=== PATIENT | male | born 1990 | race Caucasian/White ===

== ENCOUNTER 2016-10-11 13:48 | Emergency (ER) | payer OTHER ==
[~2016-10-11] VITALS: Ht 182.9 cm; Wt 61.5 kg
[~2016-10-11 13:48] MED LIST: LANTUSP SQ; NOVOLOGP2 SQ
[2016-10-11] MEDS ORDERED: SODIUM CHLOR 0.9% 1000 ML INJ 1,000 ML IV ONE ×2 (13:53→14:23)
[2016-10-11 13:54] VITALS: BP 128/99; PULSE 97; RESP 20; TEMP 98.4; O2SAT 100
[2016-10-11] MEDS ORDERED: PROCHLORPERAZINE INJ 10 MG/2 ML VIAL IVS ONE (14:00)
[2016-10-11] MEDS ORDERED: SODIUM CHLORIDE 0.9% FLUSH 5 ML FLUSH IVF PRN (14:00)
[2016-10-11] MEDS ORDERED: diphenhydrAMINE HCL 50 MG/ML VIAL IV PUSH ONE (14:00)
[2016-10-11 14:09] LABS: BLOOD GAS VENOUS BASE EXCESS 3.3 mmol/L (-2-2); BLOOD GAS VENOUS HCO3 27 mmol/L (22-26); BLOOD GAS VENOUS O2 CONTENT 12.7 Vol % (9.0-17.0); BLOOD GAS VENOUS O2 HGB SAT 66 % (70-76); BLOOD GAS VENOUS PCO2 36 mmHg (44-48); BLOOD GAS VENOUS PO2 35 mmHg (35-40); BLOOD GAS VENOUS pH 7.48 (7.360-7.400); CRITICAL VALUE NO; DRAW SITE IV; FIO2 21 %; OXYGEN DEVICE ROOM AIR; STAT YES; TEMP CORR TO 98.6
[2016-10-11 14:19] LABS: AUTOMATED NEUTROPHIL # 8.1 TH/MM3 (1.8-7.7); BASOPHIL # 0.3 TH/MM3 (0-0.2); BASOPHIL % 2.3 % (0.0-2.0); CHLORIDE 91 MEQ/L (98-107); EOSINOPHIL # 0.1 TH/MM3 (0-0.4); EOSINOPHIL % 0.8 % (0.0-4.0); HEMATOCRIT 43.8 % (39.0-51.0); LYMPH % 18.2 % (9.0-44.0); MEAN CELL VOLUME 92.6 FL (80.0-100.0); MEAN CORPUSCULAR HEMOGLOBIN 30.3 PG (27.0-34.0); MEAN CORPUSCULAR HGB CONC 32.7 % (32.0-36.0); MONO % 6.9 % (0.0-8.0); NEUT % 71.8 % (16.0-70.0); PLATELET COUNT 290 TH/MM3 (150-450); POTASSIUM 3.8 MEQ/L (3.5-5.1); RED BLOOD COUNT 4.74 MIL/MM3 (4.50-5.90); SODIUM (NA) 130 MEQ/L (136-145); WHITE BLOOD COUNT 11.3 TH/MM3 (4.0-11.0)
[2016-10-11 14:22] LABS: ANION GAP 12 MEQ/L (5-15); BICARBONATE 27.5 MEQ/L (21.0-32.0); BLOOD UREA NITROGEN 19 MG/DL (7-18)
[2016-10-11 14:23] LABS: HEMO FLAGS DIFF FINAL
[2016-10-11 14:25] LABS: ALT (GPT) 16 U/L (12-78); AST (GOT) 14 U/L (15-37); GLOMERULAR FILTRATION RATE 67 ML/MIN (>89)
--- NOTE | 2016-10-11 14:26 | PD ---
HPI . Persistent vomiting Chief Complaint: Diabetic Time Seen by Provider: 13:53 Travel History International Travel<30 days: No Contact w/Intl Traveler<30days: No History of Present Illness HPI This is a type I diabetic who presents with persistent vomiting and diarrhea for the last 4 days. His sugar in triage was too high to register. The patient reports that he is diabetic because of pancreatitis as a teenager. He has subsequently undergone cholecystectomy, pancreatectomy, splenectomy. He states that his pancreas was "eating up his insides." In addition, the patient is reporting chronic low back pain. PFSH Past Medical History Asthma: Yes ( A CHILD) Autoimmune Disease: No Anxiety: No Depression: No Cardiovascular Problems: No Diabetes: Yes Diminished Hearing: No Genitourinary: No Musculoskeletal: Yes Neurologic: No Psychiatric: No Respiratory: No Pancreatitis: Yes Past Surgical History Abdominal Surgery: Yes (3 YRS AGO: CHOLY, SPLENECTOMY, 70% PANCREAS REMOVED AT [facility]) Cholecystectomy: Yes Social History Alcohol Use: Yes (1X MONTHLY OR BIMONTHLY) Tobacco Use: No Substance Use: No Allergies-Medications (Allergen,Severity, Reaction): Coded Allergies: Keflex (Verified Allergy, Intermediate, HIVES, 10/11/16) Maalox (Verified Allergy, Intermediate, HIVES, 10/11/16) Reported Meds & Prescriptions Reported Meds & Active Scripts Active Reported [Triceba] 38 Units SQ DAILY Novolog Inj (Insulin Aspart) 1,000 Unit/10 Ml Vial 0 SQ DIRECTED Sliding Scale as directed. Review of Systems Except as stated in HPI: all other systems reviewed are Neg General / Constitutional: No: Fever, Chills Gastrointestinal: Positive: Nausea, Vomiting, Diarrhea, Abdominal Pain Musculoskeletal: Positive: Pain (back) Physical Exam Narrative GENERAL: This is a chronically ill-appearing young man who is very pale and thin. SKIN: Warm and dry. HEAD: Atraumatic. Normocephalic. EYES: Pupils equal and round. ENT: No nasal bleeding or discharge. Mucous membranes are pink but dry. Breath smells of ketones. NECK: Trachea midline. Neck supple. CARDIOVASCULAR: Regular rate and rhythm. RESPIRATORY: No accessory muscle use. Lungs are clear with full air movement throughout. GASTROINTESTINAL: Abdomen soft, non-tender, nondistended. MUSCULOSKELETAL: No obvious deformities. No edema. NEUROLOGICAL: Awake and alert. No obvious cranial nerve deficits. Motor grossly within normal limits. Normal speech. PSYCHIATRIC: Appropriate mood and affect; insight and judgment normal. Data Data Last Documented VS Vital Signs Date Time Temp Pulse Resp B/P Pulse Ox O2 Delivery O2 Flow Rate FiO2 10/11/16 13:54 98.4 97 20 128/99 100 Orders Electrocardiogram (10/11/16 13:53) Complete Blood Count With Diff (10/11/16 13:53) Comprehensive Metabolic Panel (10/11/16 13:53) Beta Hydroxybutyrate (Acetone) (10/11/16 13:53) Lactic Acid (10/11/16 13:53) Urinalysis - C+S If Indicated (10/11/16 13:53) Blood Gas Venous (Vbg) (10/11/16 13:53) Blood Glucose (10/11/16 13:53) Blood Glucose (10/11/16 14:23) Blood Glucose (10/11/16 13:53) Blood Glucose (10/11/16 14:53) Ecg Monitoring (10/11/16 13:53) Iv Access Insert/Monitor (10/11/16 13:53) Oximetry (10/11/16 13:53) NPO (10/11/16 13:53) Sodium Chlor 0.9% 1000 Ml Inj (Ns 1000 M (10/11/16 13:53) Sodium Chlor 0.9% 1000 Ml Inj (Ns 1000 M (10/11/16 14:23) Sodium Chloride 0.9% Flush (Ns Flush) (10/11/16 14:00) Prochlorperazine Inj (Compazine Inj) (10/11/16 14:00) Diphenhydramine Inj (Benadryl Inj) (10/11/16 14:00) Diet Npo (10/11/16 Dinner) Sodium Chlor 0.9% 1000 Ml Inj (Ns 1000 M (10/11/16 14:41) Dext 5%-Nacl 0.9% 1000 Ml Inj (D5w-Ns 10 (10/11/16 14:41) Insulin Regular (Iv Infusion) (Novolin R (10/11/16 14:45) Potassium Chlor 20 Meq Premix (Kcl 20 Me (10/11/16 14:45) Potassium Chlor 20 Meq Premix (Kcl 20 Me (10/11/16 14:45) Potassium Chlor 20 Meq Premix (Kcl 20 Me (10/11/16 14:45) Potassium Chlor 20 Meq Premix (Kcl 20 Me (10/11/16 14:45) Sodium Bicarbonate 8.4% Inj (Sodium Bica (10/11/16 14:45) Sodium Bicarbonate 8.4% Inj (Sodium Bica (10/11/16 14:45) Sodium Phosphate Inj (Sodium Phosphate I (10/11/16 14:45) Basic Metabolic Panel (Bmp) (10/11/16 19:41) Basic Metabolic Panel (Bmp) (10/12/16 01:41) Basic Metabolic Panel (Bmp) (10/12/16 07:41) Basic Metabolic Panel (Bmp) (10/12/16 13:41) Magnesium (Mg) (10/11/16 19:41) Magnesium (Mg) (10/12/16 01:41) Magnesium (Mg) (10/12/16 07:41) Magnesium (Mg) (10/12/16 13:41) Phosphorus (Po4) (10/11/16 19:41) Phosphorus (Po4) (10/12/16 01:41) Phosphorus (Po4) (10/12/16 07:41) Phosphorus (Po4) (10/12/16 13:41) Beta Hydroxybutyrate (Acetone) (10/12/16 01:41) Beta Hydroxybutyrate (Acetone) (10/12/16 13:41) Labs Laboratory Tests Test 10/11/16 10/11/16 14:01 14:04 White Blood Count 11.3 TH/MM3 Red Blood Count 4.74 MIL/MM3 Hemoglobin 14.3 GM/DL Hematocrit 43.8 % Mean Corpuscular Volume 92.6 FL Mean Corpuscular Hemoglobin 30.3 PG Mean Corpuscular Hemoglobin 32.7 % Concent Red Cell Distribution Width 13.0 % Platelet Count 290 TH/MM3 Mean Platelet Volume 10.6 FL Neutrophils (%) (Auto) 71.8 % Lymphocytes (%) (Auto) 18.2 % Monocytes (%) (Auto) 6.9 % Eosinophils (%) (Auto) 0.8 % Basophils (%) (Auto) 2.3 % Neutrophils # (Auto) 8.1 TH/MM3 Lymphocytes # (Auto) 2.0 TH/MM3 Monocytes # (Auto) 0.8 TH/MM3 Eosinophils # (Auto) 0.1 TH/MM3 Basophils # (Auto) 0.3 TH/MM3 CBC Comment DIFF FINAL Differential Comment Sodium Level 130 MEQ/L Potassium Level 3.8 MEQ/L Chloride Level 91 MEQ/L Carbon Dioxide Level 27.5 MEQ/L Anion Gap 12 MEQ/L Blood Urea Nitrogen 19 MG/DL Creatinine 1.30 MG/DL Estimat Glomerular Filtration 67 ML/MIN Rate Random Glucose 694 MG/DL Lactic Acid Level 4.1 mmol/L Calcium Level 9.6 MG/DL Total Bilirubin 0.5 MG/DL Aspartate Amino Transf 14 U/L (AST/SGOT) Alanine Aminotransferase 16 U/L (ALT/SGPT) Alkaline Phosphatase 121 U/L Total Protein 8.3 GM/DL Albumin 4.0 GM/DL B-Hydroxybutyrate 0.63 MMOL/L Blood Gas Puncture Site IV Blood Gas Patient Temperature 98.6 Venous Blood pH 7.48 Venous Blood Partial Pressure 36 mmHg CO2 Venous Blood Partial Pressure 35 mmHg O2 Venous Blood HCO3 27 mmol/L Venous Blood Oxygen Saturation 66 % Venous Blood Oxygen Content 12.7 Vol % Venous Blood Base Excess 3.3 mmol/L Oxygen Delivery Device ROOM AIR Blood Gas Inspired Oxygen 21 % MDM Medical Decision Making Medical Screen Exam Complete: Yes Emergency Medical Condition: Yes Differential Diagnosis Differential diagnosis of hyperglycemia includes but is not limited to dietary indiscretion, medication noncompliance, infection, WA, DKA. Narrative Course This is a very thin, pale, chronically ill-appearing young man who presents history of nausea, vomiting and diarrhea. He smells of ketones. His glucose is too high to register by fingerstick. CBC & BMP Diagram 10/11/16 14:01 Lactic acid is 4.1. PH is 7.48 with a bicarbonate of 27. Serum ketones are positive at 0.63. Arrangements were made for this patient to be admitted to the hospital. However , he chooses to sign out AMA. The patient is totally competent. He has been told that he is welcome to return if he needs us. Diagnosis Primary Impression: Hyperglycemia due to type 1 diabetes mellitus Additional Impression: Diabetes mellitus with lactic acidosis without coma Admitting Information Admitting Physician Requests: Admit Disposition: 07 AGAINST MEDICAL ADVICE Condition: Jenifer Hernandez MD Oct 11, 2016 14:26
[2016-10-11 14:27] LABS: TOTAL BILIRUBIN ADULT 0.5 MG/DL (0.2-1.0)
[2016-10-11 14:29] LABS: ALKALINE PHOSPHATASE 121 U/L (45-117)
[2016-10-11 14:40] VITALS: BP 134/79; PULSE 99; RESP 16; O2SAT 98
[2016-10-11] MEDS ORDERED: DEXT 5%-NACL 0.9% 1000 ML INJ 1,000 ML IV SCH (14:41)
[2016-10-11] MEDS ORDERED: SODIUM CHLOR 0.9% 1000 ML INJ 1,000 ML IV SCH (14:41)
[2016-10-11] MEDS ORDERED: INSULIN REGULAR (IV INFUSION) 100 UNITS in SODIUM CHLORIDE 0.9% INJ 99 ML IV SCH (14:45)
[2016-10-11] MEDS ORDERED: SODIUM PHOSPHATE INJ 15 MMOL in SODIUM CHLORIDE 0.9% INJ 100 ML IV PRN (14:45)
[2016-10-11] MEDS ORDERED: SODIUM BICARBONATE 8.4% SOLN 50 MEQ/50 ML VIAL IV PRN ×2 (14:45)
[2016-10-11] MEDS ORDERED: POTASSIUM CHLOR 20 MEQ PREMIX 100 ML IV PRN ×4 (14:45)
[2016-10-11 14:54] LABS: BETA-HYDROXYBUTYRATE 0.63 MMOL/L (0.00-0.39)
[2016-10-11] MEDS ORDERED: NOVOLOGP2 SQ (14:57)
[2016-10-11] MEDS ORDERED: TRICEBA SQ (14:58)
--- NOTE | 2016-10-11 15:11 | EKG ---
Date Performed: 10/11/2016 Time Performed: 14:24:02 PTAGE: 26 years EKG: Sinus rhythm Extensive ST elevation suggests pericarditis vs early repolarization. Abnormal ECG NO PREVIOUS TRACING DOCTOR: Mason Lemus Interpretating Date/Time 10/11/2016 15:09:50
[2016-10-12] MEDS ORDERED: INSU1INJ14 SQ (11:03)
== END 2016-10-11 15:57 | disposition left against medical advice (07) ==
LOC: PHED 13:48
DX: E11.65 Type 2 diabetes mellitus with hyperglycemia (principal); Z79.4 Long term (current) use of insulin; Z87.19 Personal history of other diseases of the digestive system
CPT/HCPCS: 80053; 82010; 82805; 83605; 85025; 93005; 96374; 96375; 99284; J0780; J1200; J7030

== ENCOUNTER → 2017-01-17 | Day surgery (SDC) | payer OTHER ==
[~2017-01-17] MED LIST changes: +INSU1INJ14 SQ; +LACTATED RINGER'S 1000 ML INJ 1,000 ML ONE; -LANTUSP SQ; +ONABOTULINUMTOXINA INJ 100 UNITS/VIAL ONE; +PROPOFOL 500 MG/50 ML BTL IV ONE; +SODIUM CHLORIDE 0.9% INJ 10 ML ONE
--- NOTE | 2017-01-17 10:32 | GIPROC ---
[facility] [address] [facility], [address] EGD PROCEDURE REPORT EXAM DATE: 01/17/2017 PATIENT NAME: Pancho Mejia MR #: [id number] BIRTHDATE: 1990 ATTENDING: Shaun Pelaez MD ORDER #: [id number] ONCOLOGY SPECIALIST: Pat Dugan RN STATUS: outpatient INDICATIONS: The patient is a 26 yr old male here for an EGD due to epigastric abdominal pain and vomiting PROCEDURE PERFORMED: EGD w/ directed submucosal injection(s), any substance MEDICATIONS: None and Per Anesthesia. TOPICAL ANESTHETIC: CONSENT: The patient understands the risks and benefits of the procedure and understands that these risks include, but are not limited to: sedation, allergic reaction, infection, perforation and/or bleeding. Alternative means of evaluation and treatment include, among others: physical exam, x-rays, and/or surgical intervention. The patient elects to proceed with this endoscopic procedure. medical equipment was checked for proper function. Hand hygiene and appropriate measures for infection prevention was taken. After the risks, benefits and alternatives of the procedure were thoroughly explained, Informed consent was verified, confirmed and timeout was successfully executed by the treatment team. The patient was anesthetized with topical anesthesia and the EC-[id number] ([id number]) endoscope was introduced through the mouth and advanced to the pylorus. Retroflexed views revealed no abnormalities The gastroscope was then slowly withdrawn and removed. ESOPHAGUS: There was LA Class A esophagitis noted. STOMACH: There was a large amount of residual food seen in the gastric body. Due to the residual food, complete mucosal examination could not be performed. Injected with a total of 100 units of botox around the pylorus. Not entered due to large food residue. ADVERSE EVENTS: There were no complications. IMPRESSIONS: 1. There was LA Class A esophagitis noted 2. Food residue in the gastric body 3. Not entered due to large food residue 4. Retroflexed views revealed no abnormalities RECOMMENDATIONS: Anti-reflux regimen PATIENT CONDITION: stable DISPOSITION: Home REPEAT EXAM: Return 3 months EGD Shaun Pelaez MD eSigned: Shaun Pelaez MD 01/17/2017 10:32 AM cc: Carol Gagnon [facility] Anastacia Moseley M.D. PATIENT NAME: Cr Mejiamookie Orozco MR#: [id number]
--- NOTE | 2017-01-17 10:45 | GIPROC ---
[facility] [address] [facility] [place], [address] COLONOSCOPY PROCEDURE REPORT EXAM DATE: 01/17/2017 PATIENT NAME: Pancho Mejia MR #: [id number] BIRTHDATE: 1990 ENDOSCOPIST: Shaun Pelaez MD ORDER #: [id number] FLOAT OPERATOR: Pat Dugan RN STATUS: outpatient INDICATIONS: The patient is a 26 yr old male here for a colonoscopy due to abdominal pain, chronic diarrhea, and weight loss PROCEDURE PERFORMED: Colonoscopy with biopsy MEDICATIONS: None and Per Anesthesia. PREP QUALITY: The [place] Bowel Prep Score was Right colon 2, Mid colon 3, and Left colon 3. Total = 8. ESTIMATED BLOOD LOSS: None CONSENT: The patient understands the risks and benefits of the procedure and understands that these risks include, but are not limited to: sedation, allergic reaction, infection, perforation and/or bleeding. Alternative means of evaluation and treatment include, among others: physical exam, x-rays, and/or surgical intervention. The patient elects to proceed with this endoscopic procedure. medical equipment was checked for proper function. Hand hygiene and appropriate measures for infection prevention was taken. After the risks, benefits and alternatives of the procedure were thoroughly explained, Informed consent was verified, confirmed and timeout was successfully executed by the treatment team. A digital exam revealed external hemorrhoids The EC-[id number] ([id number]) endoscope was introduced through the anus and advanced to the cecum, which was identified by both the appendix and ileocecal valve. The instrument was then slowly withdrawn as the colon was fully examined. COLON FINDINGS: The colonic mucosa appeared normal throughout the entire examined colon. Multiple random biopsies of the area were performed using cold forceps. Retroflexed views revealed internal hemorrhoids and Retroflexed views revealed small internal hemorrhoids The scope was then completely withdrawn from the patient and the procedure terminated. PROCEDURE WITHDRAWAL TIME:6minutes ADVERSE EVENTS: There were no complications. IMPRESSIONS: 1. The colonic mucosa appeared normal throughout the entire examined colon; multiple random biopsies of the area were performed using cold forceps 2. Retroflexed views revealed internal hemorrhoids 3. Retroflexed views revealed small internal hemorrhoids 4. Revealed external hemorrhoids RECOMMENDATIONS: 1. Await biopsy results. Biopsy results will not be ready for 7-10 days. If you don't hear from us in two weeks, call our office for results. 2. Continue surveillance 3. Yearly hemoccult 4. Follow-up: [facility] Clinic 2 week(s) 5. With Dr. Monroe RECALL: Return 10 years Colonoscopy, pending biopsy results Shaun Pelaez MD eSigned: Shaun Pelaez MD 01/17/2017 10:44 AM cc: Carol Gagnno [facility] Galaviz and Olive Cutler M.D.
== END | disposition home or self-care (01) ==
LOC: ESDC 08:48
PROVIDERS: ATTEND Internal Medicine Gastroenterology
DX: R10.9 Unspecified abdominal pain (principal); K52.9 Noninfective gastroenteritis and colitis, unspecified; R63.4 Abnormal weight loss; K64.8 Other hemorrhoids; R10.13 Epigastric pain; R11.10 Vomiting, unspecified; K20.9 Esophagitis, unspecified
CPT/HCPCS: 00740; 00810; 43236; 45380; 82948; 88305; J0585; J3010; J7120

== ENCOUNTER 2017-07-07 23:02 | Emergency (ER) | payer OTHER ==
[~2017-07-07] VITALS: Ht 182.9 cm; Wt 66.0 kg
[~2017-07-07 23:02] MED LIST changes: -LACTATED RINGER'S 1000 ML INJ 1,000 ML ONE; -ONABOTULINUMTOXINA INJ 100 UNITS/VIAL ONE; -PROPOFOL 500 MG/50 ML BTL IV ONE; -SODIUM CHLORIDE 0.9% INJ 10 ML ONE
[2017-07-07 23:03] VITALS: BP 134/91; PULSE 113; RESP 18; TEMP 99.4; O2SAT 97
[2017-07-08] MEDS ORDERED: SODIUM CHLOR 0.9% 1000 ML INJ 1,000 ML IV ONE
[2017-07-08] MEDS ORDERED: diphenhydrAMINE HCL ELIXIR 12.5 MG/5 ML CUP PO ONE
[2017-07-08] MEDS ORDERED: LIDOCAINE VISCOUS 2% SOLN 15 ML UDC SWISH-SWAL ONE
[2017-07-08] MEDS ORDERED: PANTOPRAZOLE SODIUM 40 MG VIAL IV PUSH ONE
[2017-07-08] MEDS ORDERED: ONDANSETRON HCL 4 MG/2 ML VIAL IV PUSH ONE
--- NOTE | 2017-07-08 00:12 | PD ---
HPI Chief Complaint: GI Complaint Time Seen by Provider: 23:38 Travel History International Travel<30 days: No Contact w/Intl Traveler<30days: No Traveled to known affect area: No History of Present Illness HPI pt has history of chronic abdominal pain , he had gallstone pancreatitis as a 16 yr old , with excision of 70 % of his pancreas now IDDM and Chronic abdo issues Reports Epigastric pain and vomit is on Phergan IM and Zofran ODT at home took without relief today , pt comes in to ER still severe pain and was supported to have an neural plexis injection blockade done Transesophegeal , but for some reason wasn;t a candidate, Jun 27 had attempt at this procedure as per girlfriend bedside answering all the questions we asked, pt only moaning PFSH Past Medical History Asthma: Yes ( A CHILD) Autoimmune Disease: No Anxiety: No Depression: No Cardiovascular Problems: No Diabetes: Yes (TYPE 1) Patient Takes Glucophage: No Diminished Hearing: No Genitourinary: No Musculoskeletal: Yes Neurologic: No Psychiatric: No Respiratory: No Pancreatitis: Yes Past Surgical History Abdominal Surgery: Yes (3 CHOLY, SPLENECTOMY, 70% PANCREAS REMOVED AT [facility]) Cholecystectomy: Yes Social History Alcohol Use: No Tobacco Use: Yes (ONE PPD) Substance Use: Yes (MARIJUANA) Allergies-Medications (Allergen,Severity, Reaction): Coded Allergies: calcium carbonate (Unverified Allergy, Intermediate, HIVES, 07/08/17) cephalexin (Unverified Allergy, Intermediate, HIVES, 07/08/17) Reported Meds & Prescriptions Reported Meds & Active Scripts Active Lidocaine Viscous Liq 2 % Liqd 10 Ml SWISH-SWAL QID PRN Protonix (Pantoprazole Sodium) 40 Mg Tab 40 Mg PO DAILY Bentyl (Dicyclomine HCl) 10 Mg Cap 10 Mg PO TID Reported Zofran (Ondansetron HCl) 4 Mg Tab 4 Mg PO Q12HR PRN Tresiba Flextouch Pen Inj (Insulin Degludec Inj) Unknown Strength Pen 38 Units SQ DAILY Novolog Inj (Insulin Aspart) 1,000 Unit/10 Ml Vial 0 SQ DIRECTED Sliding Scale as directed. Review of Systems Except as stated in HPI: all other systems reviewed are Neg Physical Exam Narrative GENERAL: pale weak appearance letting girlfriend answer all question and provide Hx SKIN: Warm and dry. HEAD: Atraumatic. Normocephalic. EYES: Pupils equal and round. No scleral icterus. No injection or drainage. ENT: No nasal bleeding or discharge. Mucous membranes pink and moist. NECK: Trachea midline. No JVD. CARDIOVASCULAR: Regular rate and rhythm. RESPIRATORY: No accessory muscle use. Clear to auscultation. Breath sounds equal bilaterally. GASTROINTESTINAL: Abdomen thin non distended and horizontal 8 cm scar old well healed above umbilicus + epigastric tender, nondistended. Hepatic and splenic margins not palpable. MUSCULOSKELETAL: Extremities without clubbing, cyanosis, or edema. No obvious deformities. NEUROLOGICAL: Awake and alert. No obvious cranial nerve deficits. Motor grossly within normal limits. Five out of 5 muscle strength in the arms and legs. Normal speech. PSYCHIATRIC: Appropriate mood and affect; insight and judgment normal. Data Data Last Documented VS Vital Signs Date Time Temp Pulse Resp B/P (MAP) Pulse Ox O2 Delivery O2 Flow Rate FiO2 07/08/17 01:54 07/07/17 23:03 99.4 113 18 97 Room Air Orders Orders Diphenhydramine Liq (Benadryl Liq) (07/08/17 00:00) Lidocaine 2% Viscous (Xylocaine 2% Visco (07/08/17 00:00) Pantoprazole Inj (Protonix Inj) (07/08/17 00:00) Ondansetron Inj (Zofran Inj) (07/08/17 00:00) Sodium Chlor 0.9% 1000 Ml Inj (Ns 1000 M (07/08/17 00:00) Ketorolac Inj (Toradol Inj) (07/08/17 00:30) Lorazepam Inj (Ativan Inj) (07/08/17 00:30) Ketorolac Inj (Toradol Inj) (07/08/17 01:45) Lorazepam Inj (Ativan Inj) (07/08/17 01:45) Ed Discharge Order (07/08/17 01:53) MDM Medical Decision Making Medical Screen Exam Complete: Yes Emergency Medical Condition: Yes Medical Record Reviewed: Yes Differential Diagnosis chronic abdo pain gastritis gastroenteritis Narrative Course gave multpile meds with moderate relief then toradol and ativan and pt feels well enough to go home to resume PO meds Diagnosis Primary Impression: Gastritis Qualified Codes: K29.60 - Other gastritis without bleeding Additional Impression: Abdominal pain Qualified Codes: R10.84 - Generalized abdominal pain Patient Instructions: Acute Abdominal Pain (ED), General Instructions Scripts Pantoprazole (Protonix) 40 Mg Tab 40 MG PO DAILY for Reflux, #30 TAB 0 Refills Prov: Prem De Jesus MD 07/08/17 Dicyclomine (Bentyl) 10 Mg Cap 10 MG PO TID for Bowel Management, #10 CAP 0 Refills Prov: Prem De Jesus MD 07/08/17 Disposition: 01 DISCHARGE HOME Condition: Good Prem De Jesus MD Jul 08, 2017 00:12
[2017-07-08] MEDS ORDERED: LORazepam 2 MG/ML VIAL IV PUSH ONE ×2 (00:30→01:45)
[2017-07-08] MEDS ORDERED: KETOROLAC TROMETHAMINE 30 MG/ML (IVP) VIAL IV PUSH ONE ×2 (00:30→01:45)
[2017-07-08] MEDS ORDERED: DICY10 PO (01:57)
[2017-07-08] MEDS ORDERED: PROT40TA PO (02:10)
[2017-07-08] MEDS ORDERED: ZOFR4TAB PO (19:25)
[2017-07-08] MEDS ORDERED: LIDO1SOL8 SWISH-SWAL (22:59)
== END 2017-07-08 02:22 | disposition home or self-care (01) ==
LOC: NEPC 23:02
DX: K29.70 Gastritis, unspecified, without bleeding (principal); R10.84 Generalized abdominal pain; E10.8 Type 1 diabetes mellitus with unspecified complications; K85.90 Acute pancreatitis without necrosis or infection, unspecified; Z72.0 Tobacco use
CPT/HCPCS: 96361; 96374; 96375; 96376; 99284; C9113; J1885; J2060; J2405; J7030

== ENCOUNTER 2017-07-08 18:47 | Emergency (ER) | payer OTHER ==
[~2017-07-08] VITALS: Ht 182.9 cm; Wt 65.0 kg
[~2017-07-08 18:47] MED LIST changes: +DICY10 PO; +PROT40TA PO
[2017-07-08 18:49] VITALS: BP 129/73; PULSE 113; RESP 18; TEMP 98.5; O2SAT 98
[2017-07-08] MEDS ORDERED: ZOFR4TAB PO (19:25)
[2017-07-08] MEDS ORDERED: diphenhydrAMINE HCL ELIXIR 12.5 MG/5 ML CUP PO ONE ×2 (19:30→22:30)
[2017-07-08] MEDS ORDERED: PANTOPRAZOLE SODIUM 40 MG VIAL IV PUSH ONE (19:30)
[2017-07-08] MEDS ORDERED: ONDANSETRON HCL 4 MG/2 ML VIAL IV PUSH ONE (19:30)
[2017-07-08] MEDS ORDERED: KETOROLAC TROMETHAMINE 30 MG/ML (IVP) VIAL IV PUSH ONE (19:30)
[2017-07-08] MEDS ORDERED: LIDOCAINE VISCOUS 2% SOLN 15 ML UDC SWISH-SWAL ONE ×2 (19:30→22:30)
--- NOTE | 2017-07-08 19:36 | PD ---
HPI Chief Complaint: Abdominal Pain Time Seen by Provider: 19:04 Travel History International Travel<30 days: No Contact w/Intl Traveler<30days: No Traveled to known affect area: No History of Present Illness HPI pt was in ER last night for same complaint of vomit severe abdo pain same as last night and pt was treated with toradol and ativan and lidocaine PO and Bandryl PO with moderate rerlief , I did not feel narcotics were indicated for his chronic condition and therefore after protonix zofran and lido did not relieve I gave toradol and Ativan Iv with improvement . now return less than 24 hr and same complaint PFSH Past Medical History Asthma: Yes ( A CHILD) Autoimmune Disease: No Anxiety: No Depression: No Cardiovascular Problems: No Diabetes: Yes (TYPE 1) Patient Takes Glucophage: No Diminished Hearing: No Gastrointestinal Disorders: Yes (GASTROPARESIS) Genitourinary: No Musculoskeletal: Yes Neurologic: No Psychiatric: No Respiratory: No Pancreatitis: Yes Past Surgical History Abdominal Surgery: Yes (3 CHOLY, SPLENECTOMY, 70% PANCREAS REMOVED AT [facility]) Cholecystectomy: Yes Social History Alcohol Use: No Tobacco Use: Yes (ONE PPD) Substance Use: Yes (MARIJUANA) Allergies-Medications (Allergen,Severity, Reaction): Coded Allergies: calcium carbonate (Unverified Allergy, Intermediate, HIVES, 07/08/17) cephalexin (Unverified Allergy, Intermediate, HIVES, 07/08/17) Reported Meds & Prescriptions Reported Meds & Active Scripts Active Protonix (Pantoprazole Sodium) 40 Mg Tab 40 Mg PO DAILY Bentyl (Dicyclomine HCl) 10 Mg Cap 10 Mg PO TID Reported Zofran (Ondansetron HCl) 4 Mg Tab 4 Mg PO Q12HR PRN Tresiba Flextouch Pen Inj (Insulin Degludec Inj) Unknown Strength Pen 38 Units SQ DAILY Novolog Inj (Insulin Aspart) 1,000 Unit/10 Ml Vial 0 SQ DIRECTED Sliding Scale as directed. Review of Systems Except as stated in HPI: all other systems reviewed are Neg Gastrointestinal: Positive: Nausea, Abdominal Pain Physical Exam Narrative GENERAL: pale thin appears in pain SKIN: Warm and dry. HEAD: Atraumatic. Normocephalic. EYES: Pupils equal and round. No scleral icterus. No injection or drainage. ENT: No nasal bleeding or discharge. Mucous membranes pink and moist. NECK: Trachea midline. No JVD. CARDIOVASCULAR: Regular rate and rhythm. RESPIRATORY: No accessory muscle use. Clear to auscultation. Breath sounds equal bilaterally. GASTROINTESTINAL: Abdomen soft, very thin cachetic appearance epigastric tender, nondistended. Hepatic and splenic margins not palpable. subcostal bilateral scar 9 cm MUSCULOSKELETAL: Extremities without clubbing, cyanosis, or edema. No obvious deformities. NEUROLOGICAL: Awake and alert. No obvious cranial nerve deficits. Motor grossly within normal limits. Five out of 5 muscle strength in the arms and legs. Normal speech. PSYCHIATRIC: Appropriate mood and affect; insight and judgment normal. Data Data Last Documented VS Vital Signs Date Time Temp Pulse Resp B/P (MAP) Pulse Ox O2 Delivery O2 Flow Rate FiO2 07/08/17 18:49 98.5 113 18 129/73 (91) 98 Orders Orders Complete Blood Count With Diff (07/08/17 19:23) Comprehensive Metabolic Panel (07/08/17 19:23) Lipase (07/08/17 19:23) Pantoprazole Inj (Protonix Inj) (07/08/17 19:30) Ondansetron Inj (Zofran Inj) (07/08/17 19:30) Lidocaine 2% Viscous (Xylocaine 2% Visco (07/08/17 19:30) Diphenhydramine Liq (Benadryl Liq) (07/08/17 19:30) Ketorolac Inj (Toradol Inj) (07/08/17 19:30) Urinalysis - C+S If Indicated (07/08/17 20:27) Chest, Pa & Lat (07/08/17 ) Lorazepam Inj (Ativan Inj) (07/08/17 22:30) Lidocaine 2% Viscous (Xylocaine 2% Visco (07/08/17 22:30) Diphenhydramine Liq (Benadryl Liq) (07/08/17 22:30) Labs Laboratory Tests Test 07/08/17 19:35 07/08/17 21:40 White Blood Count 18.1 TH/MM3 Red Blood Count 3.48 MIL/MM3 Hemoglobin 10.4 GM/DL Hematocrit 31.4 % Mean Corpuscular Volume 90.3 FL Mean Corpuscular Hemoglobin 29.9 PG Mean Corpuscular Hemoglobin Concent 33.1 % Red Cell Distribution Width 14.2 % Platelet Count 460 TH/MM3 Mean Platelet Volume 9.8 FL Neutrophils (%) (Auto) 81.4 % Lymphocytes (%) (Auto) 9.5 % Monocytes (%) (Auto) 7.4 % Eosinophils (%) (Auto) 0.9 % Basophils (%) (Auto) 0.8 % Neutrophils # (Auto) 14.7 TH/MM3 Lymphocytes # (Auto) 1.7 TH/MM3 Monocytes # (Auto) 1.3 TH/MM3 Eosinophils # (Auto) 0.2 TH/MM3 Basophils # (Auto) 0.1 TH/MM3 CBC Comment DIFF FINAL Differential Comment Blood Urea Nitrogen 12 MG/DL Creatinine 0.70 MG/DL Random Glucose 230 MG/DL Total Protein 7.8 GM/DL Albumin 2.9 GM/DL Calcium Level 8.9 MG/DL Alkaline Phosphatase 126 U/L Aspartate Amino Transf (AST/SGOT) 16 U/L Alanine Aminotransferase (ALT/SGPT) 18 U/L Total Bilirubin 0.3 MG/DL Sodium Level 135 MEQ/L Potassium Level 3.7 MEQ/L Chloride Level 100 MEQ/L Carbon Dioxide Level 27.6 MEQ/L Anion Gap 7 MEQ/L Estimat Glomerular Filtration Rate 135 ML/MIN Lipase 49 U/L Urine Color YELLOW Urine Turbidity CLEAR Urine pH 7.0 Urine Specific [place] 1.031 Urine Protein NEG mg/dL Urine Glucose (UA) 1000 mg/dL Urine Ketones NEG mg/dL Urine Occult Blood NEG Urine Nitrite NEG Urine Bilirubin NEG Urine Urobilinogen LESS THAN 2.0 MG/DL Urine Leukocyte Esterase NEG Urine RBC 3 /hpf Urine WBC 1 /hpf Urine Mucus FEW /lpf Microscopic Urinalysis Comment CULT NOT INDICATED MDM Medical Decision Making Medical Screen Exam Complete: Yes Emergency Medical Condition: Yes Medical Record Reviewed: Yes Differential Diagnosis Chronic abdominal pain versus gastritis versus pancreatitis versus gallstone Narrative Course Patient is treated with the same regimen of medications. I gave him yesterday. I Gave him viscous lidocaine by mouth Benadryl by mouth I gave him Protonix IV and given Toradol IV an0.5 mg of Ativan and feels much better I'm discharging him with lidocaine viscous by mouth to take as needed at home Diagnosis Primary Impression: Gastritis Qualified Codes: K29.60 - Other gastritis without bleeding Scripts Lidocaine Viscous Liq (Lidocaine Viscous Liq) 2 % Liqd 10 ML SWISH-SWAL QID Y for PAIN, #1 BOTTLE 0 Refills Prov: Prem De Jesus MD 07/08/17 Disposition: 01 DISCHARGE HOME Condition: Good Prem De Jesus MD Jul 08, 2017 19:36
[2017-07-08 19:56] LABS: AUTOMATED NEUTROPHIL # 14.7 TH/MM3 (1.8-7.7); BASOPHIL # 0.1 TH/MM3 (0-0.2); BASOPHIL % 0.8 % (0.0-2.0); EOSINOPHIL # 0.2 TH/MM3 (0-0.4); EOSINOPHIL % 0.9 % (0.0-4.0); HEMATOCRIT 31.4 % (39.0-51.0); HEMO FLAGS DIFF FINAL; LYMPH % 9.5 % (9.0-44.0); LYMPHOCYTE # 1.7 TH/MM3 (1.0-4.8); MEAN CELL VOLUME 90.3 FL (80.0-100.0); MEAN CORPUSCULAR HEMOGLOBIN 29.9 PG (27.0-34.0); MEAN CORPUSCULAR HGB CONC 33.1 % (32.0-36.0); MONO % 7.4 % (0.0-8.0); NEUT % 81.4 % (16.0-70.0); PLATELET COUNT 460 TH/MM3 (150-450); RED BLOOD COUNT 3.48 MIL/MM3 (4.50-5.90); RED CELL DISTRIBUTION WIDTH 14.2 % (11.6-17.2); WHITE BLOOD COUNT 18.1 TH/MM3 (4.0-11.0)
[2017-07-08 20:18] LABS: ALT (GPT) 18 U/L (12-78); ANION GAP 7 MEQ/L (5-15); AST (GOT) 16 U/L (15-37); BICARBONATE 27.6 MEQ/L (21.0-32.0); BLOOD UREA NITROGEN 12 MG/DL (7-18); CHLORIDE 100 MEQ/L (98-107); GLOMERULAR FILTRATION RATE 135 ML/MIN (>89); POTASSIUM 3.7 MEQ/L (3.5-5.1); SODIUM (NA) 135 MEQ/L (136-145)
[2017-07-08 20:20] LABS: ALKALINE PHOSPHATASE 126 U/L (45-117); TOTAL BILIRUBIN ADULT 0.3 MG/DL (0.2-1.0)
--- NOTE | 2017-07-08 21:04 | RADRPT ---
EXAM DATE/TIME: 07/08/2017 20:50 [place] COMPARISON: No previous studies available for comparison. INDICATIONS : Left upper abdominal pain. MEDICAL HISTORY : Pancreatitis. SURGICAL HISTORY : Cholecystectomy. Splenectomy. Chest tube. Pancreatectomy ENCOUNTER: Initial ACUITY: 3 days PAIN SCORE: 9/10 LOCATION: Left upper abdomen. FINDINGS: PA and lateral views of the chest demonstrate the lungs to be symmetrically aerated without evidence of mass, infiltrate or effusion. The cardiomediastinal contours are unremarkable. Osseous structure s are intact. CONCLUSION: Normal examination. Omar Alcantar MD on July 08, 2017 at 21:02 Board Certified Radiologist. This report was verified electronically.
[2017-07-08] MEDS ORDERED: LORazepam 2 MG/ML VIAL IV PUSH ONE (22:30)
[2017-07-08 22:47] LABS: BLOOD, URINE NEG (NEG); COMMENT (UR) CULT NOT INDICATED; CULTURE IF INDICATED CULT NOT INDICATED; GLUCOSE,URINE 1000 mg/dL (NEG); KETONE, URINE NEG (NEG); MUCUS URINE FEW /lpf (OCC); NITRITE,URINE NEG (NEG); URINE COLOR YELLOW (YELLW/STRAW)
[2017-07-08] MEDS ORDERED: LIDO1SOL8 SWISH-SWAL (22:59)
== END 2017-07-08 23:41 | disposition home or self-care (01) ==
LOC: NEPC 18:47
DX: K29.60 Other gastritis without bleeding (principal); J45.909 Unspecified asthma, uncomplicated; E10.9 Type 1 diabetes mellitus without complications; Z79.4 Long term (current) use of insulin
CPT/HCPCS: 71020; 80053; 81001; 83690; 85025; 96374; 96375; 99284; C9113; J1885; J2060; J2405

== ENCOUNTER 2017-09-25 11:45 | Inpatient (IN) | payer OTHER ==
[~2017-09-25] VITALS: Ht 182.9 cm; Wt 65.6 kg
[~2017-09-25 11:45] MED LIST changes: +LIDO1SOL8 SWISH-SWAL; +ZOFR4TAB PO
[2017-09-25 11:47] VITALS: BP 107/67; PULSE 107; RESP 14; TEMP 97.7; O2SAT 99
[2017-09-25] MEDS ORDERED: SODIUM CHLOR 0.9% 1000 ML INJ 1,000 ML IV ONE (12:13)
[2017-09-25] MEDS ORDERED: VANCOMYCIN INJ 1,000 MG in SODIUM CHLOR 0.9% 250 ML INJ 250 ML IV STA (12:16)
[2017-09-25] MEDS ORDERED: PIPERACIL-TAZO 4.5 GM PREMIX 100 ML IV STA (12:16)
--- NOTE | 2017-09-25 12:20 | PD ---
HPI Chief Complaint: Cardiac Complaint Time Seen by Provider: 12:16 Travel History International Travel<30 days: No Contact w/Intl Traveler<30days: No Traveled to known affect area: No History of Present Illness HPI 27-year-old male patient with history of long-standing diabetes, presents to the ER today sent in by impregnator for a foot ulcer that has turned into an osteomyelitis over several weeks. He states that he had fevers before but has no longer any fevers. He had been on Bactrim but is not working. He denies any other issues at this time. She ascended by impregnator for admission, needs foot surgery tomorrow. Modifying Factors: None Associated Signs & Symptoms: Foot ulcer, underlying osteomyelitis Risk Factors: Diabetic PFSH Past Medical History Asthma: Yes ( A CHILD) Autoimmune Disease: No Anxiety: No Depression: No Cardiovascular Problems: No Diabetes: Yes Diminished Hearing: No Gastrointestinal Disorders: Yes (GASTROPARESIS) Genitourinary: No Musculoskeletal: Yes Neurologic: No Psychiatric: No Respiratory: No Pancreatitis: Yes Past Surgical History Abdominal Surgery: Yes (3 CHOLY, SPLENECTOMY, 70% PANCREAS REMOVED AT [facility]) Cholecystectomy: Yes Social History Alcohol Use: No Tobacco Use: Yes (ONE PPD) Substance Use: Yes (MARIJUANA) Allergies-Medications (Allergen,Severity, Reaction): Coded Allergies: calcium carbonate (Unverified Allergy, Intermediate, HIVES, 07/08/17) cephalexin (Unverified Allergy, Intermediate, HIVES, 07/08/17) Reported Meds & Prescriptions Reported Meds & Active Scripts Active Lidocaine Viscous Liq 2 % Liqd 10 Ml SWISH-SWAL QID PRN Protonix (Pantoprazole Sodium) 40 Mg Tab 40 Mg PO DAILY Reported Ativan (Lorazepam) 1 Mg Tab 1 Mg PO Q8H PRN Hydrocodone-Acetaminophen 5-325 mg Tab 1 Tab PO Q4H PRN Ondansetron HCl 4 mg/2 ml Amp (Ondansetron HCl/Pf) 4 Mg/2 Ml Ampul 4 Mg IM Q4HR PRN Phenergan Inj (Promethazine HCl) 25 Mg/Ml Inj 25 Mg IM Q6H PRN Phenergan (Promethazine HCl) 25 Mg Tablet 25 Mg PO Q6H PRN Reglan (Metoclopramide HCl) 10 Mg Tab 10 Mg PO QID Zofran (Ondansetron HCl) 4 Mg Tab 4 Mg PO Q12HR PRN Tresiba Flextouch Pen Inj (Insulin Degludec Inj) Unknown Strength Pen 26 Units SQ DAILY Novolog Inj (Insulin Aspart) 1,000 Unit/10 Ml Vial 0 SQ DIRECTED Sliding Scale as directed. Review of Systems Except as stated in HPI: all other systems reviewed are Neg Physical Exam Narrative GENERAL: Well-developed young male patient currently in mild distress. Awake an oriented 3. SKIN: Focused skin assessment warm/dry. HEAD: Atraumatic. Normocephalic. EYES: Pupils equal and round. No scleral icterus. No injection or drainage. ENT: No nasal bleeding or discharge. Mucous membranes pink and moist. NECK: Trachea midline. No JVD. CARDIOVASCULAR: Regular rate and rhythm. No murmur appreciated. RESPIRATORY: No accessory muscle use. Clear to auscultation. Breath sounds equal bilaterally. GASTROINTESTINAL: Abdomen soft, non-tender, nondistended. Hepatic and splenic margins not palpable. MUSCULOSKELETAL: No obvious deformities. No clubbing. No cyanosis. No edema. EXTREMITIES: No clubbing, cyanosis, or edema. No joint tenderness, effusion, or edema noted. There is not notable left foot lateral 3 cm ulcerated area with packing in place. NEUROLOGICAL: Awake and alert. No obvious cranial nerve deficits. Motor grossly within normal limits. Normal speech. PSYCHIATRIC: Appropriate mood and affect; insight and judgment normal. Data Data Last Documented VS Vital Signs Date Time Temp Pulse Resp B/P (MAP) Pulse Ox O2 Delivery O2 Flow Rate FiO2 09/25/17 11:47 97.7 107 14 107/67 (80) 99 Orders Orders Sepsis Workup Initiated (09/25/17 ) Complete Blood Count With Diff (09/25/17 12:13) Comprehensive Metabolic Panel (09/25/17 12:13) Lactic Acid Sepsis Protocol (09/25/17 12:13) Blood Culture (09/25/17 12:13) Blood Glucose (09/25/17 12:13) Ecg Monitoring (09/25/17 12:13) Iv Access Insert/Monitor (09/25/17 12:13) Oximetry (09/25/17 12:13) Oxygen Administration (09/25/17 12:13) Sodium Chlor 0.9% 1000 Ml Inj (Ns 1000 M (09/25/17 12:13) Piperacil-Tazo 4.5 Gm Premix (Zosyn 4.5 (09/25/17 12:16) Vancomycin Inj (Vancomycin Inj) (09/25/17 12:16) Labs Laboratory Tests Test 09/25/17 12:20 09/25/17 12:29 White Blood Count 18.4 TH/MM3 Red Blood Count 3.44 MIL/MM3 Hemoglobin 10.1 GM/DL Hematocrit 31.4 % Mean Corpuscular Volume 91.2 FL Mean Corpuscular Hemoglobin 29.3 PG Mean Corpuscular Hemoglobin Concent 32.1 % Red Cell Distribution Width 16.3 % Platelet Count 976 TH/MM3 Mean Platelet Volume 8.0 FL Neutrophils (%) (Auto) 76.9 % Lymphocytes (%) (Auto) 15.4 % Monocytes (%) (Auto) 4.2 % Eosinophils (%) (Auto) 2.3 % Basophils (%) (Auto) 1.2 % Neutrophils # (Auto) 14.2 TH/MM3 Lymphocytes # (Auto) 2.8 TH/MM3 Monocytes # (Auto) 0.8 TH/MM3 Eosinophils # (Auto) 0.4 TH/MM3 Basophils # (Auto) 0.2 TH/MM3 CBC Comment AUTO DIFF Differential Total Cells Counted 100 Neutrophils % (Manual) 65 % Band Neutrophils % 11 % Lymphocytes % 16 % Monocytes % 2 % Eosinophils % 2 % Neutrophils # (Manual) 14.7 TH/MM3 Metamyelocytes 2 % Myelocytes 2 % Differential Comment FINAL DIFF MANUAL Toxic Granulation 1+ Platelet Estimate HIGH Platelet Morphology Comment NORMAL Acanthocytes OCC Blood Urea Nitrogen 15 MG/DL Creatinine 0.85 MG/DL Random Glucose 177 MG/DL Total Protein 8.8 GM/DL Albumin 2.8 GM/DL Calcium Level 9.2 MG/DL Alkaline Phosphatase 101 U/L Aspartate Amino Transf (AST/SGOT) 6 U/L Alanine Aminotransferase (ALT/SGPT) 9 U/L Total Bilirubin 0.1 MG/DL Sodium Level 135 MEQ/L Potassium Level 4.1 MEQ/L Chloride Level 99 MEQ/L Carbon Dioxide Level 29.4 MEQ/L Anion Gap 7 MEQ/L Estimat Glomerular Filtration Rate 108 ML/MIN Lactic Acid Level 1.8 mmol/L MDM Medical Decision Making Medical Screen Exam Complete: Yes Emergency Medical Condition: Yes Medical Record Reviewed: Yes Interpretation(s) Laboratory Tests Test 09/25/17 12:20 09/25/17 12:29 White Blood Count 18.4 TH/MM3 (4.0-11.0) Red Blood Count 3.44 MIL/MM3 (4.50-5.90) Hemoglobin 10.1 GM/DL (13.0-17.0) Hematocrit 31.4 % (39.0-51.0) Platelet Count 976 TH/MM3 (150-450) Neutrophils (%) (Auto) 76.9 % (16.0-70.0) Neutrophils # (Auto) 14.2 TH/MM3 (1.8-7.7) Band Neutrophils % 11 % (0-6) Neutrophils # (Manual) 14.7 TH/MM3 (1.8-7.7) Metamyelocytes 2 % (0-1) Myelocytes 2 % (0-0) Toxic Granulation 1+ (NORMAL) Platelet Estimate HIGH (NORMAL) Random Glucose 177 MG/DL (74-106) Total Protein 8.8 GM/DL (6.4-8.2) Albumin 2.8 GM/DL (3.4-5.0) Aspartate Amino Transf (AST/SGOT) 6 U/L (15-37) Alanine Aminotransferase (ALT/SGPT) 9 U/L (12-78) Total Bilirubin 0.1 MG/DL (0.2-1.0) Sodium Level 135 MEQ/L (136-145) Differential Diagnosis Osteomyelitis of the foot Narrative Course IV antibiotics initiated after cultures have been drawn. Workup initiated. Planning to admit medically with podiatry consult. Lab work shows significant leukocytosis and lactate is almost 2. IV and spouse were initiated. Case is discussed with Dr. Smalls for admission. Diagnosis Primary Impression: Osteomyelitis of left foot Admitting Information Admitting Physician Requests: Admit Robbin Pierre MD Sep 25, 2017 12:20
[2017-09-25 12:30] VITALS: BP 113/72; PULSE 93; RESP 17; O2SAT 94
[2017-09-25] MEDS ORDERED: PROM2INJ IM (12:30)
[2017-09-25] MEDS ORDERED: HYDR-3516 PO (12:30)
[2017-09-25] MEDS ORDERED: PROM25TA10 PO (12:30)
[2017-09-25] MEDS ORDERED: REGL10TA5 PO (12:30)
[2017-09-25] MEDS ORDERED: ONDA4INJ IM (12:30)
[2017-09-25] MEDS ORDERED: LORA-474 PO (12:30)
[2017-09-25 12:51] LABS: AUTOMATED NEUTROPHIL # 14.2 TH/MM3 (1.8-7.7); BASOPHIL # 0.2 TH/MM3 (0-0.2); BASOPHIL % 1.2 % (0.0-2.0); EOSINOPHIL # 0.4 TH/MM3 (0-0.4); EOSINOPHIL % 2.3 % (0.0-4.0); HEMATOCRIT 31.4 % (39.0-51.0); HEMOGLOBIN 10.1 GM/DL (13.0-17.0); LYMPH % 15.4 % (9.0-44.0); LYMPHOCYTE # 2.8 TH/MM3 (1.0-4.8); MEAN CELL VOLUME 91.2 FL (80.0-100.0); MEAN CORPUSCULAR HEMOGLOBIN 29.3 PG (27.0-34.0); MEAN CORPUSCULAR HGB CONC 32.1 % (32.0-36.0); MONO % 4.2 % (0.0-8.0); MONOCYTE # 0.8 TH/MM3 (0-0.9); NEUT % 76.9 % (16.0-70.0); PLATELET COUNT 976 TH/MM3 (150-450); RED BLOOD COUNT 3.44 MIL/MM3 (4.50-5.90); RED CELL DISTRIBUTION WIDTH 16.3 % (11.6-17.2); WHITE BLOOD COUNT 18.4 TH/MM3 (4.0-11.0)
[2017-09-25 13:09] LABS: ALBUMIN 2.8 GM/DL (3.4-5.0); AST (GOT) 6 U/L (15-37); BICARBONATE 29.4 MEQ/L (21.0-32.0); BLOOD UREA NITROGEN 15 MG/DL (7-18); CALCIUM 9.2 MG/DL (8.5-10.1); CHLORIDE 99 MEQ/L (98-107); CREATININE 0.85 MG/DL (0.60-1.30); GLOMERULAR FILTRATION RATE 108 ML/MIN (>89); GLUCOSE,RANDOM 177 MG/DL (74-106); SODIUM (NA) 135 MEQ/L (136-145)
[2017-09-25 13:12] LABS: ALKALINE PHOSPHATASE 101 U/L (45-117); ALT (GPT) 9 U/L (12-78); TOTAL BILIRUBIN ADULT 0.1 MG/DL (0.2-1.0); TOTAL PROTEIN 8.8 GM/DL (6.4-8.2)
[2017-09-25 13:21] LABS: BANDS 11 % (0-6); LYMPHOCYTES 16 % (9-44); METAMYELOCYTES 2 % (0-1); MONOCYTES 2 % (0-8); MYELOCYTES 2 % (0-0); NEUTROPHIL # MANUAL DIFF 14.7 TH/MM3 (1.8-7.7); POLYS (SEG NEUTROPHILS) 65 % (16-70)
[2017-09-25 13:22] LABS: TOXIC GRANULATION 1+ (NORMAL)
[2017-09-25 13:23] LABS: ACANTHOCYTES OCC (NORMAL)
[2017-09-25] MEDS ORDERED: NALOXONE HCL 0.4 MG/ML AMP IV PUSH PRN (14:30)
[2017-09-25] MEDS ORDERED: ACETAMINOPHEN 325 MG TAB PO PRN (14:30)
[2017-09-25] MEDS ORDERED: GLUCAGON 1 MG/ML VIAL OTHER PRN (14:30)
[2017-09-25] MEDS ORDERED: DEXTROSE 50% IN WATER 50 ML VIAL(D50) IV PUSH PRN (14:30)
[2017-09-25] MEDS ORDERED: MAGNESIUM HYDROXIDE SUSP 30 ML CUP PO PRN (14:30)
--- NOTE | 2017-09-25 14:44 | HHI.HP ---
HPI Service [facility] Hospitalists Primary Care Physician Olive Cutler MD Admission Diagnosis foot osteomyelitis/sepsis Chief Complaint: sent by podiatry concerned for OM of bilateral feet Travel History International Travel<30 Days: No Contact w/Intl Traveler <30 Da: No Traveled to Known Affected Are: No History of Present Illness This is a 27-year-old male patient with past medical history which includes anxiety, DM peripheral neuropathy, gastroparesis, Dx with celiac artery compression at [facility] looking into surgery with Dr. Moran. Patient seen with his fiance at bedside. Patient reports he has had calluses BLE for a long time, from walking barefoot. About two weeks ago patient noticed blisters foamed over the calluses and then the blistered opened and he has had large nonhealing ulcerations. 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 Patient reports he had been on Bactrim outpatient prior to coming to the hospital today. Applications Packager plans for foot surgery tomorrow. Patient denies fevers, chills, shortness of breath or chest pain. Review of Systems Constitutional: DENIES: Fatigue, Fever, Chills Respiratory: DENIES: Cough, Sputum production, Shortness of breath Cardiovascular: DENIES: Chest pain, Dyspnea on Exertion, Lower Extremity Edema Gastrointestinal: DENIES: Abdominal pain Neurologic: DENIES: Abnormal gait, Headache, Localized weakness Psychiatric: COMPLAINS OF: Anxiety (chronic), DENIES: Confusion, Depression Past Family Social History Past Medical History anxiety, DM peripheral neuropathy, gastroparesis, Dx with celiac artery compression at [facility] looking into surgery with Dr. Moran. Past Surgical History cholecystectomy splenectomy Pancrease resection Reported Medications Lidocaine Viscous Liq 2 % Liqd 10 Ml SWISH-SWAL QID PRN Protonix (Pantoprazole Sodium) 40 Mg Tab 40 Mg PO DAILY Ativan (Lorazepam) 1 Mg Tab 1 Mg PO Q8H PRN Hydrocodone-Acetaminophen 5-325 mg Tab 1 Tab PO Q4H PRN Ondansetron HCl 4 mg/2 ml Amp (Ondansetron HCl/Pf) 4 Mg/2 Ml Ampul 4 Mg IM Q4HR PRN Phenergan Inj (Promethazine HCl) 25 Mg/Ml Inj 25 Mg IM Q6H PRN Phenergan (Promethazine HCl) 25 Mg Tablet 25 Mg PO Q6H PRN Reglan (Metoclopramide HCl) 10 Mg Tab 10 Mg PO QID Zofran (Ondansetron HCl) 4 Mg Tab 4 Mg PO Q12HR PRN Tresiba Flextouch Pen Inj (Insulin Degludec Inj) Unknown Strength Pen 26 Units SQ DAILY Novolog Inj (Insulin Aspart) 1,000 Unit/10 Ml Vial 0 SQ DIRECTED Sliding Scale as directed. Allergies: Coded Allergies: calcium carbonate (Unverified Allergy, Intermediate, HIVES, 07/08/17) cephalexin (Unverified Allergy, Intermediate, HIVES, 07/08/17) Family History Mother has HTN Social History Smoke 1 PPD denies ETOH use Physical Exam Vital Signs Vital Signs Date Time Temp Pulse Resp B/P (MAP) Pulse Ox O2 Delivery O2 Flow Rate FiO2 09/25/17 11:47 97.7 107 14 107/67 (80) 99 Physical Exam GENERAL: This is a thin 27 year old male patient, in no acute distress. SKIN: patient has two large nonhealing ulcerations lateral surface bilateral feet. Wound are not draining and do not have afoul odor HEAD: Atraumatic. Normocephalic. No temporal or scalp tenderness. EYES: Extraocular motions intact. No scleral icterus. No injection or drainage. CARDIOVASCULAR: Regular rate and rhythm RESPIRATORY: Clear to auscultation. Breath sounds equal bilaterally. GASTROINTESTINAL: Abdomen soft, non-tender, nondistended. MUSCULOSKELETAL: Extremities without clubbing, cyanosis, or edema. No joint tenderness, effusion, or edema noted. No calf tenderness. Negative Homans sign bilaterally. NEUROLOGICAL: Awake and alert. No focal deficits. Motor and sensory grossly within normal limits. Five out of 5 muscle strength in all muscle groups. Normal speech. Laboratory Laboratory Tests Test 09/25/17 12:20 09/25/17 12:29 White Blood Count 18.4 Red Blood Count 3.44 Hemoglobin 10.1 Hematocrit 31.4 Mean Corpuscular Volume 91.2 Mean Corpuscular Hemoglobin 29.3 Mean Corpuscular Hemoglobin Concent 32.1 Red Cell Distribution Width 16.3 Platelet Count 976 Mean Platelet Volume 8.0 Neutrophils (%) (Auto) 76.9 Lymphocytes (%) (Auto) 15.4 Monocytes (%) (Auto) 4.2 Eosinophils (%) (Auto) 2.3 Basophils (%) (Auto) 1.2 Neutrophils # (Auto) 14.2 Lymphocytes # (Auto) 2.8 Monocytes # (Auto) 0.8 Eosinophils # (Auto) 0.4 Basophils # (Auto) 0.2 CBC Comment AUTO DIFF Differential Total Cells Counted 100 Neutrophils % (Manual) 65 Band Neutrophils % 11 Lymphocytes % 16 Monocytes % 2 Eosinophils % 2 Neutrophils # (Manual) 14.7 Metamyelocytes 2 Myelocytes 2 Differential Comment FINAL DIFF MANUAL Toxic Granulation 1+ Platelet Estimate HIGH Platelet Morphology Comment NORMAL Acanthocytes OCC Blood Urea Nitrogen 15 Creatinine 0.85 Random Glucose 177 Total Protein 8.8 Albumin 2.8 Calcium Level 9.2 Alkaline Phosphatase 101 Aspartate Amino Transf (AST/SGOT) 6 Alanine Aminotransferase (ALT/SGPT) 9 Total Bilirubin 0.1 Sodium Level 135 Potassium Level 4.1 Chloride Level 99 Carbon Dioxide Level 29.4 Anion Gap 7 Estimat Glomerular Filtration Rate 108 Lactic Acid Level 1.8 Date/Time Source Procedure Growth Status 09/25/17 12:30 Blood Peripheral Aerobic Blood Culture Pending Received 09/25/17 12:30 Blood Peripheral Anaerobic Blood Culture Pending Received Result Diagram: 09/25/17 1220 09/25/17 1220 Caprini VTE Risk Assessment Caprini VTE Risk Assessment: No/Low Risk (score <= 1) Caprini Risk Assessment Model Point Value = 1 Point Value = 2 Point Value = 3 Point Value = 5 Age 41-60 Minor surgery BMI > 25 kg/m2 Swollen legs Varicose veins or History of unexplained or recurrent spontaneous Oral contraceptives or hormone replacement Sepsis (< 1 month) Serious lung disease, including pneumonia (< 1 month) Abnormal pulmonary function Acute myocardial infarction Congestive heart failure (< 1 month) History of inflammatory bowel disease Medical patient at bed rest Age 61-74 Arthroscopic surgery Major open surgery (> 45 min) Laparoscopic surgery (> 45 min) Malignancy Confined to bed (> 72 hours) Immobilizing plaster cast Central venous access Age >= 75 History of VTE Family history of VTE Factor V Leiden Prothrombin [id number] Lupus anticoagulant Anticardiolipin antibodies Elevated serum homocysteine Heparin-induced thrombocytopenia Other congenital or acquired thrombophilia Stroke (< 1 month) Elective arthroplasty Hip, pelvis, or leg fracture Acute spinal cord injury (< 1 month) Prophylaxis Regimen Total Risk Factor Score Risk Level Prophylaxis Regimen 0-1 Low Early ambulation 2 Moderate Order ONE of the following: *Sequential Compression Device (SCD) *Heparin 5000 units SQ BID 3-4 Higher Order ONE of the following medications: *Heparin 5000 units SQ TID *Enoxaparin/Lovenox 40 mg SQ daily (WT < 150 kg, CrCl > 30 mL/min) *Enoxaparin/Lovenox 30 mg SQ daily (WT < 150 kg, CrCl > 10-29 mL/min) *Enoxaparin/Lovenox 30 mg SQ BID (WT < 150 kg, CrCl > 30 mL/min) AND/OR *Sequential Compression Device (SCD) 5 or more Highest Order ONE of the following medications: *Heparin 5000 units SQ TID (Preferred with Epidurals) *Enoxaparin/Lovenox 40 mg SQ daily (WT < 150 kg, CrCl > 30 mL/min) *Enoxaparin/Lovenox 30 mg SQ daily (WT < 150 kg, CrCl > 10-29 mL/min) *Enoxaparin/Lovenox 30 mg SQ BID (WT < 150 kg, CrCl > 30 mL/min) AND *Sequential Compression Device (SCD) Assessment and Plan Problem List: (1) Osteomyelitis ICD Codes: M86.9 - Osteomyelitis, unspecified Status: Acute Plan: Osteomyelitis This is a 27-year-old male patient with past medical history which includes anxiety, DM peripheral neuropathy, gastroparesis, Dx with celiac artery compression at [facility] looking into surgery with Dr. Moran. 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 Patient reports he had been on Bactrim outpatient prior to coming to the hospital today. Applications Packager plans for foot surgery tomorrow. Patient was given zosyn and vancomyacin in the ER, will hold off on further ABX untill cultures obtained Podiatry plans for surgery in AM patient NPO after midnight [place] and Morphine as needed for pain Diabetes Mellitus Diabetic diet Accuchecks ACHS with SSI NPO after midnight plan for surgery in AM Gastroparesis continue home Reglan 10 mg ACHS Zofran as needed for N/V Anxiety continue patient's home Ativan 1 mg PO Q8H as needed for anxiety DVT prophylaxis with SCDs (2) Diabetes mellitus ICD Codes: E11.9 - Type 2 diabetes mellitus without complications Status: Chronic (3) Anxiety ICD Codes: F41.9 - Anxiety disorder, unspecified Status: Chronic (4) Gastroparesis ICD Codes: K31.84 - Gastroparesis Status: Chronic Assessment and Plan Patient examined. Assessment and plan formulated with Юлия Gaxiola PA-C. I agree with the above. Pt diabetic sent here by Podiatry for osteomyelitis in bilateral feet/5th toes ulcerated wounds noted. no foul odor or cellulitis. hold off abx to get accurate intraop cx's. ED already gave zosyn/vanco. pain control. ssi for now. npo after MN. Physician Certification 2 Midnight Certification Type: Admission for Inpatient Services Order for Inpatient Services The services are ordered in accordance with Medicare regulations or non- Medicare payer requirements, as applicable. In the case of services not specified as inpatient-only, they are appropriately provided as inpatient services in accordance with the 2-midnight benchmark. Estimated LOS (days): 3 days is the estimated time the patient will need to remain in the hospital, assuming treatment plan goals are met and no additional complications. Post-Hospital Plan: Home Health Юлия Gaxiola Sep 25, 2017 14:44 Nehemiah Smalls MD Sep 25, 2017 15:14
[2017-09-25] MEDS ORDERED: ACETAMINOPHEN/HYDROcodone 325 MG/7.5 MG TAB PO PRN (14:45)
[2017-09-25 15:30] VITALS: BP 109/72; PULSE 88; RESP 14; O2SAT 97
[2017-09-25] MEDS: MORPHINE SULFATE 4 MG/ML INJ IV PUSH PRN ×2 (15:32→20:22)
[2017-09-25] MEDS: METOCLOPRAMIDE HCL 10 MG TAB PO SCH ×2 (17:57→20:21)
[2017-09-25] MEDS: INSULIN ASPART SUPPLEMENTAL SCALE SQ SCH ×2 (18:45→21:45)
[2017-09-25] MEDS: LORazepam 1 MG TAB PO PRN (20:22)
[2017-09-25] MEDS: SODIUM CHLORIDE 0.9% FLUSH 10 ML FLUSH IV FLUSH SCH (20:23)
[2017-09-25] MEDS: DOCUSATE SODIUM 50 MG/SENNA 8.6 MG TAB PO SCH (20:23)
[2017-09-25 20:26] VITALS: BP 124/80; PULSE 88; RESP 18; TEMP 97.8; O2SAT 95
[2017-09-26] VITALS: BP 122/79; PULSE 77; RESP 18; TEMP 97.6; O2SAT 97
[2017-09-26] MEDS: MORPHINE SULFATE 4 MG/ML INJ IV PUSH PRN ×4 (01:12→20:59)
[2017-09-26] MEDS ORDERED: CHLORHEXIDINE GLUCONATE 2 % 1 PACK (2 CLOTHS) TOPICAL PRN (03:45)
[2017-09-26] MEDS ORDERED: LACTATED RINGER'S 1000 ML IV PRN (03:45)
[2017-09-26] MEDS ORDERED: POVIDONE IODINE 5% (ANTISEPSIS KIT) 4 APPLICATIONS EACH NARE PRN (03:45)
[2017-09-26] MEDS ORDERED: SODIUM CHLORID 0.9% 500 ML IV PRN (03:45)
[2017-09-26 04:00] VITALS: BP 125/83; PULSE 74; RESP 18; TEMP 98.9; O2SAT 98
[2017-09-26] MEDS: ONDANSETRON HCL 4 MG/2 ML VIAL IVP PRN ×2 (05:45→22:38)
[2017-09-26 07:18] LABS: AUTOMATED NEUTROPHIL # 9.4 TH/MM3 (1.8-7.7); BASOPHIL # 0.2 TH/MM3 (0-0.2); BASOPHIL % 1.2 % (0.0-2.0); EOSINOPHIL # 0.5 TH/MM3 (0-0.4); EOSINOPHIL % 3.3 % (0.0-4.0); HEMATOCRIT 31.4 % (39.0-51.0); HEMOGLOBIN 10.1 GM/DL (13.0-17.0); LYMPH % 23.5 % (9.0-44.0); LYMPHOCYTE # 3.3 TH/MM3 (1.0-4.8); MEAN CELL VOLUME 91.1 FL (80.0-100.0); MEAN CORPUSCULAR HEMOGLOBIN 29.4 PG (27.0-34.0); MEAN CORPUSCULAR HGB CONC 32.2 % (32.0-36.0); MEAN PLATELET VOLUME 8.4 FL (7.0-11.0); MONO % 4.8 % (0.0-8.0); MONOCYTE # 0.7 TH/MM3 (0-0.9); NEUT % 67.2 % (16.0-70.0); PLATELET COUNT 877 TH/MM3 (150-450); RED BLOOD COUNT 3.44 MIL/MM3 (4.50-5.90); RED CELL DISTRIBUTION WIDTH 16.1 % (11.6-17.2)
--- NOTE | 2017-09-26 07:20 | PD.CONS ---
History of Present Illness Service podiatry Consult Requested By ED Reason for Consult Bilateral foot infections Primary Care Physician Olive Cutler MD Diagnoses: History of Present Illness Patient first presented to my clinic last week after leaving [facility] against medical advice. He had labs drawn, but no MRI. When in clinic, aggressive wound debridement and cultures were performed and outpatient labs and MRI ordered. Received call from radiologist Sunday regarding findings and emergent nature of them and called patient to encourage to go in for surgery and medical management of his infections. He has had calluses due to walking barefoot without shoes for a long time and lack of maintenance. Past Family Social History Allergies: Coded Allergies: calcium carbonate (Unverified Allergy, Intermediate, HIVES, 07/08/17) cephalexin (Unverified Allergy, Intermediate, HIVES, 07/08/17) Past Medical History anxiety, DM peripheral neuropathy, gastroparesis, Dx with celiac artery compression at [facility] looking into surgery with Dr. Moran. Past Surgical History cholecystectomy splenectomy Pancrease resection Active Ordered Medications Current Medications Medications (Trade) Dose Ordered Sig/Milagro Route Start Time Stop Time Status Last Admin (NS Flush) 2 ml UNSCH PRN IV FLUSH 09/25/17 14:30 (NS Flush) 2 ml BID IV FLUSH 09/25/17 21:00 09/26/17 08:01 (Tylenol) 650 mg Q4H PRN PO 09/25/17 14:30 (Zofran Inj) 4 mg Q6H PRN IVP 09/25/17 14:30 09/26/17 05:45 (Narcan Inj) 0.4 mg UNSCH PRN IV PUSH 09/25/17 14:30 (Tiffany-Colace) 1 tab BID PO 09/25/17 21:00 (Milk Of Magnesia Liq) 30 ml Q12H PRN PO 09/25/17 14:30 (D50w (Vial) Inj) 50 ml UNSCH PRN IV PUSH 09/25/17 14:30 (Glucagon Inj) 1 mg UNSCH PRN OTHER 09/25/17 14:30 (NovoLOG SUPPLEMENTAL SCALE) 1 ACHS SLIDING SCALE SQ 09/25/17 17:00 09/26/17 15:57 (Morphine Inj) 4 mg Q4HR PRN IV PUSH 09/25/17 14:45 09/26/17 11:00 ([place] 7.5-325 Mg) 1 tab Q6H PRN PO 09/25/17 14:45 (Ativan) 1 mg Q8H PRN PO 09/25/17 15:00 09/26/17 08:00 (Protonix) 40 mg DAILY PO 09/26/17 09:00 09/26/17 07:59 (Reglan) 10 mg ACHS PO 09/25/17 17:00 09/25/17 20:21 Lactated Ringer's 1,000 ml @ 30 mls/hr Q24H PRN IV 09/26/17 03:45 09/29/17 03:44 09/26/17 15:50 Sodium Chloride 500 ml @ 30 mls/hr [id number] PRN IV 09/26/17 03:45 09/29/17 03:44 (Betadine 5% Antisepsis Kit) 1 applic FIELD CAPTAIN PRN EACH NARE 09/26/17 03:45 09/29/17 03:44 (Chlorhexidine 2% Cloth) 3 pack FIELD CAPTAIN PRN TOPICAL 09/26/17 03:45 09/29/17 03:44 Family History Mother: HTN Social History Smoke 1 PPD denies ETOH use Physical Exam Vital Signs Vital Signs Date Time Temp Pulse Resp B/P (MAP) Pulse Ox O2 Delivery O2 Flow Rate FiO2 09/25/17 20:26 97.8 88 18 124/80 (95) 95 09/25/17 15:30 88 14 109/72 (84) 97 09/25/17 12:30 93 17 113/72 (86) 94 Room Air 09/25/17 11:47 97.7 107 14 107/67 (80) 99 Physical Exam R and L plantar lateral ulcerations with probing to 5th metatarsophalangeal joint areas. L wound with fibronecrotic tissue but no michelle purulence noted. Minimal erythema surrounding wound. R wound with fibronecrotic tissue but no michelle purulence noted. Minimal erythema surrounding wound. Sensation absent to light touch. Palpable pedal pulses. Laboratory Laboratory Tests Test 09/25/17 12:20 09/25/17 12:29 09/26/17 06:20 White Blood Count 18.4 Red Blood Count 3.44 Hemoglobin 10.1 Hematocrit 31.4 Mean Corpuscular Volume 91.2 Mean Corpuscular Hemoglobin 29.3 Mean Corpuscular Hemoglobin Concent 32.1 Red Cell Distribution Width 16.3 Platelet Count 976 Mean Platelet Volume 8.0 Neutrophils (%) (Auto) 76.9 Lymphocytes (%) (Auto) 15.4 Monocytes (%) (Auto) 4.2 Eosinophils (%) (Auto) 2.3 Basophils (%) (Auto) 1.2 Neutrophils # (Auto) 14.2 Lymphocytes # (Auto) 2.8 Monocytes # (Auto) 0.8 Eosinophils # (Auto) 0.4 Basophils # (Auto) 0.2 CBC Comment AUTO DIFF Differential Total Cells Counted 100 Neutrophils % (Manual) 65 Band Neutrophils % 11 Lymphocytes % 16 Monocytes % 2 Eosinophils % 2 Neutrophils # (Manual) 14.7 Metamyelocytes 2 Myelocytes 2 Differential Comment FINAL DIFF MANUAL Toxic Granulation 1+ Platelet Estimate HIGH Platelet Morphology Comment NORMAL Acanthocytes OCC Blood Urea Nitrogen 15 Creatinine 0.85 Random Glucose 177 Total Protein 8.8 Albumin 2.8 Calcium Level 9.2 Alkaline Phosphatase 101 Aspartate Amino Transf (AST/SGOT) 6 Alanine Aminotransferase (ALT/SGPT) 9 Total Bilirubin 0.1 Sodium Level 135 Potassium Level 4.1 Chloride Level 99 Carbon Dioxide Level 29.4 Anion Gap 7 Estimat Glomerular Filtration Rate 108 Lactic Acid Level 1.8 Date/Time Source Procedure Growth Status 09/25/17 12:30 Blood Peripheral Aerobic Blood Culture Pending Received 09/25/17 12:30 Blood Peripheral Anaerobic Blood Culture Pending Received Result Diagram: 09/25/17 1220 09/25/17 1220 Assessment and Plan Assessment and Plan Bilateral osteomyelitis/septic joint 5th metatarsophalangeal joint Left foot osteomyelitis 4th metatarsal head NPO after breakfast to OR this afternoon, approx 4 pm for bilateral 5th partial ray resection and left foot 4th metatarsal head resection/bone biopsy Zachary Zabala DPM Sep 26, 2017 07:20
[2017-09-26 07:44] LABS: BICARBONATE 28.9 MEQ/L (21.0-32.0); CALCIUM 8.9 MG/DL (8.5-10.1); CREATININE 0.66 MG/DL (0.60-1.30)
[2017-09-26] MEDS: PANTOPRAZOLE SOD 40 MG DELAYED RELEASE TAB PO SCH (07:59)
[2017-09-26] MEDS: METOCLOPRAMIDE HCL 10 MG TAB PO SCH ×4 (07:59→21:11)
[2017-09-26] MEDS: DOCUSATE SODIUM 50 MG/SENNA 8.6 MG TAB PO SCH ×2 (07:59→21:00)
[2017-09-26 08:00] VITALS: BP 106/66; PULSE 84; RESP 17; TEMP 97.4; O2SAT 99
[2017-09-26] MEDS: INSULIN ASPART SUPPLEMENTAL SCALE SQ SCH ×4 (08:00→21:00)
[2017-09-26] MEDS: LORazepam 1 MG TAB PO PRN ×2 (08:00→20:58)
[2017-09-26] MEDS: SODIUM CHLORIDE 0.9% FLUSH 10 ML FLUSH IV FLUSH SCH ×2 (08:01→21:10)
[2017-09-26 09:03] LABS: BANDS 3 % (0-6); BASOPHILS 2 % (0-2); LYMPHOCYTES 23 % (9-44); MONOCYTES 10 % (0-8); MYELOCYTES 2 % (0-0); NEUTROPHIL # MANUAL DIFF 9.1 TH/MM3 (1.8-7.7); POLYS (SEG NEUTROPHILS) 60 % (16-70); TOXIC GRANULATION 1+ (NORMAL)
[2017-09-26 09:04] LABS: ACANTHOCYTES 1+ (NORMAL)
[2017-09-26 12:00] VITALS: BP 105/60; PULSE 82; RESP 17; TEMP 97.7; O2SAT 98
[2017-09-26] MEDS ORDERED: DEXAMETHASONE SOD PHOS 4 MG/ML VIAL IV ONE (12:00)
[2017-09-26] MEDS ORDERED: SODIUM CHLOR 0.9% 250 ML INJ 250 ML IV ONE (12:00)
[2017-09-26] MEDS ORDERED: NEOSTIGMINE 5 MG/5 ML SYRINGE IV PUSH ONE (12:00)
[2017-09-26] MEDS ORDERED: ROCURONIUM INJ 50 MG/5 ML SYRINGE IV PUSH ONE (12:00)
[2017-09-26] MEDS ORDERED: LIDOCAINE HCL 1% PF 5 ML SYRINGE OTHER ONE (12:00)
[2017-09-26] MEDS ORDERED: PHENYLEPH/NS 1000 MCG/10 ML SYR IV ONE (12:00)
[2017-09-26] MEDS ORDERED: ONDANSETRON HCL 4 MG/2 ML VIAL IV ONE (12:00)
[2017-09-26] MEDS ORDERED: PROPOFOL 200 MG/20 ML AMP IV ONE (12:00)
[2017-09-26] MEDS ORDERED: GLYCOPYRROLATE 1 MG/5 ML SYRINGE IV PUSH ONE (12:00)
--- NOTE | 2017-09-26 12:03 | HHI.PR ---
Subjective Remarks anxious about the procedure Objective Vitals heart reg lung cta abd s/nt ext bilateral feet wrapped. Vital Signs Date Time Temp Pulse Resp B/P (MAP) Pulse Ox O2 Delivery O2 Flow Rate FiO2 09/26/17 08:00 97.4 84 17 106/66 (79) 99 09/26/17 04:00 98.9 74 18 125/83 (97) 98 09/26/17 00:00 97.6 77 18 122/79 (93) 97 09/25/17 20:26 97.8 88 18 124/80 (95) 95 09/25/17 15:30 88 14 109/72 (84) 97 09/25/17 12:30 93 17 113/72 (86) 94 Room Air Result Diagram: 09/26/17 0620 09/26/17 0620 A/P Problem List: (1) Osteomyelitis ICD Codes: M86.9 - Osteomyelitis, unspecified Status: Acute Plan: Osteomyelitis This is a 27-year-old male patient with past medical history which includes anxiety, DM peripheral neuropathy, gastroparesis, Dx with celiac artery compression at [facility] looking into surgery with Dr. Moran. Patient was sent today by his side laster staple due to concerns of osteomyelitis after an outpatient MRI. Patient reports he had been on Bactrim outpatient prior to coming to the hospital today. Computer Forwarding System Markup Clerk plans for foot surgery tomorrow. Patient was given zosyn and vancomyacin in the ER, will hold off on further ABX untill cultures obtained Podiatry plans for surgery today. planned bilateral 5th ray resection and left 4rth metatarsal head resection. [place] and Morphine as needed for pain Diabetes Mellitus Diabetic diet after the procedure Accuchecks ACHS with SSI Gastroparesis continue home Reglan 10 mg ACHS Zofran as needed for N/V Anxiety continue patient's home Ativan 1 mg PO Q8H as needed for anxiety DVT prophylaxis with SCDs (2) Diabetes mellitus ICD Codes: E11.9 - Type 2 diabetes mellitus without complications Status: Chronic (3) Anxiety ICD Codes: F41.9 - Anxiety disorder, unspecified Status: Chronic (4) Gastroparesis ICD Codes: K31.84 - Gastroparesis Status: Chronic Nehemiah Smalls MD Sep 26, 2017 12:03
[2017-09-26 16:04] VITALS: O2SAT 98
[2017-09-26] MEDS ORDERED: BUPIVACAINE HCL PF 0.5% 30 ML VIAL ONE (16:18)
[2017-09-26] MEDS ORDERED: LIDOCAINE HCL 2% PF SOLN 10 ML VIAL ONE (16:18)
[2017-09-26] MEDS ORDERED: VANCOMYCIN HCL 1000 MG VIAL ONE (16:51)
[2017-09-26] MEDS ORDERED: NEOMYCIN/POLYMYXIN 1 ML G.U. IRRIGANT IRRIGATION ONE (17:33)
[2017-09-26] MEDS ORDERED: PROMETHAZINE INJ 25 MG/ML VIAL ONE (18:33)
[2017-09-26] MEDS ORDERED: DO NOT ADM ANY ANTICOAGULANT DRUGS PRN (18:35)
[2017-09-26] MEDS ORDERED: *morphine SULFATE 10 MG/ML PERIprocedure ONLY ONE (18:42)
[2017-09-26] MEDS ORDERED: MIDAZOLAM HCL 2 MG/2 ML VIAL ONE (18:43)
--- NOTE | 2017-09-26 18:56 | HHI.PR ---
Immediate Post Op Note Procedure Date: Sep 26, 2017 Pre Op Diagnosis: 1. Septic joint and osteomyelitis Right and Left 5th Metatarsophalangeal joints 2. Possible osteomyelitis left 4th toe/metatarsal head 3. Abscess Right and Left foot Post Op Diagnosis: Surgeon: Zachary Zabala DPM Smelter Operator(s): Staff Procedure: 1. partial 5th ray amputation right and left feet 2. left 4th metatarsal head resection 3. bone biopsy left 4th toe Findings: Consistent with diagnoses. Large plantar ulcerations right and left sub 5th metatarsal head areas the communicated to 5th metatarsophalangeal joint areas. Ulcerations excised and bone removed from distal aspect 5th metatarsals right and left feet, as well as 5th digit and sent as specimen labeled partial 5th ray right and left, respectively. Bone from residual 5th metatarsal sent as biopsy right and left. Closure attempted of right foot primarily with 2-0 nylon after irrigation with 3L NS plug irrigant. Bone from 4th metatarsal head and base of 4th proximal phalanx sent to pathology. Irrigation wtih 3L NS plus irrigant, followed by attempt at primary closure with 2-0 nylon. Small area centrally packed open. Culture from each foot sent prior to irrigation and closure. Bilateral bandage with xeroform 4x4, abd, cast padding, isidoro bandage. Strict Nonweightbearing bilaterally. Patient will need IV antibiotics. Given vancomycin preoperatively. Await bone biopsy and culture results. May apply wound vac bedside to left foot if central aspect of surgical wound appears questionable to heal. Will place clinic culture results in front of paper chart tomorrow for review/ comparison. Additional Information: n/a Complications: none Specimen(s) removed: 1. partial 5th ray right 2. partial 5th ray left 3. bone residual 5th metatarsal right 4. bone residual 5th metatarsal left 5. 4th metatarsal head bone biopsy 6. base of 4th proximal phalanx bone biopsy 7. culture right foot 8. culture left foot Estimated blood loss: minimal Anesthesia: General, Local (10mL 0.5% marcaine plain) Drains: None IVF Tourniquet time (min at mmHg) right calf @250mmHg x 30 min left calf @250mmHg x 42 min Patient to: PACU Patient Condition: Good Date/Time of Procedure: SEE SURGICAL CARE RECORD Zachary Zabala DPM Sep 26, 2017 18:56
[2017-09-26 20:00] VITALS: BP 137/88; PULSE 90; RESP 18; TEMP 98; O2SAT 100
--- NOTE | 2017-09-26 21:04 | RADRPT ---
EXAM DATE/TIME: 09/26/2017 20:12 [facility] COMPARISON: No previous studies available for comparison. INDICATIONS : Post right foot surgery. MEDICAL HISTORY : Pancreatitis. SURGICAL HISTORY : Cholecystectomy. Splenectomy. Chest tube. Pancreatectomy ENCOUNTER: Initial ACUITY: 1 day PAIN SCORE: 4/10 LOCATION: Right foot. FINDINGS: Postoperative changes of resection of the distal fifth metatarsal and fifth toe. No complications luz ntified. CONCLUSION: 1. Postoperative resection of distal right fifth metatarsal. Wilder Alas MD on September 26, 2017 at 21:01 Board Certified Radiologist. This report was verified electronically.
--- NOTE | 2017-09-26 21:05 | RADRPT ---
EXAM DATE/TIME: 09/26/2017 20:15 [facility] COMPARISON: No previous studies available for comparison. INDICATIONS : Post op left foot surgery. MEDICAL HISTORY : Pancreatitis. SURGICAL HISTORY : Cholecystectomy. Splenectomy. Pancreatectomy ENCOUNTER: Initial ACUITY: 1 day PAIN SCORE: 4/10 LOCATION: Left foot. FINDINGS: Postoperative changes of resection of the distal fifth metatarsal and fifth toe and also the distal f ourth metatarsal and a portion of the proximal phalanx of the fourth toe. No complications identified . CONCLUSION: 1. Postoperative changes above Wilder Alas MD on September 26, 2017 at 21:02 Board Certified Radiologist. This report was verified electronically.
[2017-09-26] MEDS ORDERED: KETOROLAC TROMETHAMINE 30 MG/ML (IVP) VIAL IV PUSH PRN (23:15)
[2017-09-27 00:27] VITALS: BP 113/65; PULSE 81; RESP 18; TEMP 97.3; O2SAT 99
[2017-09-27] MEDS: MORPHINE SULFATE 4 MG/ML INJ IV PUSH PRN ×5 (02:31→20:46)
[2017-09-27 05:23] VITALS: BP 99/58; PULSE 85; RESP 18; TEMP 97.8; O2SAT 97
[2017-09-27] MEDS: ONDANSETRON HCL 4 MG/2 ML VIAL IVP PRN (06:30)
[2017-09-27] MEDS: LORazepam 1 MG TAB PO PRN ×2 (06:31→18:25)
[2017-09-27 08:53] VITALS: BP 90/50; PULSE 83; RESP 20; TEMP 97.6; O2SAT 97
[2017-09-27] MEDS: METOCLOPRAMIDE HCL 10 MG TAB PO SCH ×3 (08:59→18:24)
[2017-09-27] MEDS: PANTOPRAZOLE SOD 40 MG DELAYED RELEASE TAB PO SCH (09:00)
[2017-09-27] MEDS: DOCUSATE SODIUM 50 MG/SENNA 8.6 MG TAB PO SCH ×2 (09:00→20:47)
[2017-09-27] MEDS: SODIUM CHLORIDE 0.9% FLUSH 10 ML FLUSH IV FLUSH SCH ×2 (09:01→20:47)
[2017-09-27] MEDS: INSULIN ASPART SUPPLEMENTAL SCALE SQ SCH ×4 (11:06→20:48)
[2017-09-27] MEDS ORDERED: Vancomycin Consult Pharmacy 1 EA OTHER SCH (11:45)
[2017-09-27] MEDS ORDERED: VANCOMYCIN INJ 1,000 MG in SODIUM CHLOR 0.9% 250 ML INJ 250 ML IV SCH (11:45)
--- NOTE | 2017-09-27 11:54 | HHI.PR ---
Subjective Remarks Pt underwent partial 5th ray amputation right and left feet, left 4th metatarsal head resection, and bone biopsy left 4th toe on 09/26/[address] Francois Pt has been taking his own Tresiba without the nursing staff being aware of this. He states that he cannot take the Levemir because in the past he states that the "Tresiba makes his sugars go crazy" He has been refusing the medium dose SSI as the dose is higher than what he takes at home. Objective Vitals Vital Signs Date Time Temp Pulse Resp B/P (MAP) Pulse Ox O2 Delivery O2 Flow Rate FiO2 09/27/17 08:53 97.6 83 20 90/50 (63) 97 09/27/17 05:23 97.8 85 18 99/58 (72) 97 09/27/17 00:27 97.3 81 18 113/65 (81) 99 09/27/17 00:27 99 Nasal Cannula 2.00 09/26/17 20:30 89 14 122/75 (91) 100 Nasal Cannula 2 09/26/17 20:15 94 16 114/74 (87) 100 Nasal Cannula 2 09/26/17 20:00 87 12 113/74 (87) 100 Nasal Cannula 2 09/26/17 20:00 98.0 90 18 137/88 (104) 100 09/26/17 19:45 86 14 119/75 (90) 100 Nasal Cannula 2 09/26/17 19:30 85 14 118/76 (90) 100 Nasal Cannula 2 09/26/17 19:15 84 14 116/75 (89) 100 Nasal Cannula 2 09/26/17 19:00 84 16 118/73 (88) 100 Nasal Cannula 2 09/26/17 18:45 84 16 132/82 (99) 100 Nasal Cannula 2 09/26/17 18:35 98.0 80 16 125/79 (94) 100 Nasal Cannula 2 09/26/17 16:04 98 09/26/17 12:00 97.7 82 17 105/60 (75) 98 Result Diagram: 09/26/17 0620 09/26/17 0620 Other Results Laboratory Tests Test 09/25/17 12:20 09/25/17 12:29 09/26/17 06:20 White Blood Count 18.4 TH/MM3 14.0 TH/MM3 Red Blood Count 3.44 MIL/MM3 3.44 MIL/MM3 Hemoglobin 10.1 GM/DL 10.1 GM/DL Hematocrit 31.4 % 31.4 % Mean Corpuscular Volume 91.2 FL 91.1 FL Mean Corpuscular Hemoglobin 29.3 PG 29.4 PG Mean Corpuscular Hemoglobin Concent 32.1 % 32.2 % Red Cell Distribution Width 16.3 % 16.1 % Platelet Count 976 TH/MM3 877 TH/MM3 Mean Platelet Volume 8.0 FL 8.4 FL Neutrophils (%) (Auto) 76.9 % 67.2 % Lymphocytes (%) (Auto) 15.4 % 23.5 % Monocytes (%) (Auto) 4.2 % 4.8 % Eosinophils (%) (Auto) 2.3 % 3.3 % Basophils (%) (Auto) 1.2 % 1.2 % Neutrophils # (Auto) 14.2 TH/MM3 9.4 TH/MM3 Lymphocytes # (Auto) 2.8 TH/MM3 3.3 TH/MM3 Monocytes # (Auto) 0.8 TH/MM3 0.7 TH/MM3 Eosinophils # (Auto) 0.4 TH/MM3 0.5 TH/MM3 Basophils # (Auto) 0.2 TH/MM3 0.2 TH/MM3 CBC Comment AUTO DIFF AUTO DIFF Differential Total Cells Counted 100 100 Neutrophils % (Manual) 65 % 60 % Band Neutrophils % 11 % 3 % Lymphocytes % 16 % 23 % Monocytes % 2 % 10 % Eosinophils % 2 % Neutrophils # (Manual) 14.7 TH/MM3 9.1 TH/MM3 Metamyelocytes 2 % Myelocytes 2 % 2 % Differential Comment FINAL DIFF MANUAL FINAL DIFF MANUAL Toxic Granulation 1+ 1+ Platelet Estimate HIGH HIGH Platelet Morphology Comment NORMAL NORMAL Acanthocytes OCC 1+ Blood Urea Nitrogen 15 MG/DL 13 MG/DL Creatinine 0.85 MG/DL 0.66 MG/DL Random Glucose 177 MG/DL 204 MG/DL Total Protein 8.8 GM/DL Albumin 2.8 GM/DL Calcium Level 9.2 MG/DL 8.9 MG/DL Alkaline Phosphatase 101 U/L Aspartate Amino Transf (AST/SGOT) 6 U/L Alanine Aminotransferase (ALT/SGPT) 9 U/L Total Bilirubin 0.1 MG/DL Sodium Level 135 MEQ/L 133 MEQ/L Potassium Level 4.1 MEQ/L 4.3 MEQ/L Chloride Level 99 MEQ/L 98 MEQ/L Carbon Dioxide Level 29.4 MEQ/L 28.9 MEQ/L Anion Gap 7 MEQ/L 6 MEQ/L Estimat Glomerular Filtration Rate 108 ML/MIN 145 ML/MIN Lactic Acid Level 1.8 mmol/L Basophils % 2 % Imaging Last Impressions Foot X-Ray 09/26/17 0000 Signed Impressions: Service Date/Time: Tuesday, September 26, 2017 20:12 - CONCLUSION: 1. Postoperative resection of distal right fifth metatarsal. Wilder Alas MD Objective Remarks General: NAD, AAOx3 Chest: CTA Cardiac: Regular Abd: +BS, soft ND/NT Ext: bilateral feet bandages are c/d/i, no edema A/P Problem List: (1) Osteomyelitis ICD Codes: M86.9 - Osteomyelitis, unspecified Status: Acute Plan: Osteomyelitis - This is a 27-year-old male patient with past medical history which includes anxiety, DM peripheral neuropathy, gastroparesis, Dx with celiac artery compression at [facility] looking into surgery with Dr. Moran. - Patient was sent today by his manager reimbursement due to concerns of osteomyelitis after an outpatient MRI. -Patient reports he had been on Bactrim outpatient prior to coming to the hospital today. - Patient was given Zosyn and vancomycin in the ER, ABX were held until surgical cultures obtained - Pt underwent partial 5th ray amputation right and left feet, left 4th metatarsal head resection, and bone biopsy left 4th toe on 09/26/[address] Zabala - Start Vancomycin with pharmacy to dose - Await cultures and pathology - [place] and Morphine as needed for pain Diabetes Mellitus - Diabetic diet after the procedure - Accu-checks ACHS with SSI, we will lower to low-dose SSI - Pt has been taking his own Tresiba 26 units @ 10PM, we will get this sent and approved by pharmacy Gastroparesis - Continue home Reglan 10 mg ACHS - Zofran as needed for N/V Anxiety - Continue patient's home Ativan 1 mg PO Q8H as needed for anxiety DVT prophylaxis with SCDs (2) Diabetes mellitus ICD Codes: E11.9 - Type 2 diabetes mellitus without complications Status: Chronic (3) Anxiety ICD Codes: F41.9 - Anxiety disorder, unspecified Status: Chronic (4) Gastroparesis ICD Codes: K31.84 - Gastroparesis Status: Chronic Assessment and Plan Patient examined. Assessment and plan formulated with Louise Alcantara PA-C. I agree with the above. pt s/p 5th ray resection bilaterally and 4rth met head resection. on [email or web address] path. taking his own tresiba. ssi lowered. will get ID consultation. Louise Alcantara Sep 27, 2017 11:54 Nehemiah Smalls MD Sep 27, 2017 12:24
[2017-09-27 12:31] VITALS: BP 118/74; PULSE 80; RESP 20; TEMP 97.7; O2SAT 98
[2017-09-27] MEDS: VANCOMYCIN INJ 1,500 MG in SODIUM CHLORID 0.9% 500 ML INJ 500 ML IV SCH (16:31)
--- NOTE | 2017-09-27 20:23 | PD.POD ---
Subjective Podiatric Problems 1. Septic joint and osteomyelitis Right and Left 5th Metatarsophalangeal joints 2. Possible osteomyelitis left 4th toe/metatarsal head 3. Abscess Right and Left foot status post 1. partial 5th ray amputation right and left feet 2. left 4th metatarsal head resection 3. bone biopsy left 4th toe on 09/27/17 Past Med/Surg/Social History Social History Smoking Status: Current Every Day Smoker Objective Vital Signs Vital Signs Date Time Temp Pulse Resp B/P (MAP) Pulse Ox O2 Delivery O2 Flow Rate FiO2 09/27/17 12:31 97.7 80 20 118/74 (89) 98 09/27/17 08:53 97.6 83 20 90/50 (63) 97 09/27/17 05:23 97.8 85 18 99/58 (72) 97 09/27/17 00:27 97.3 81 18 113/65 (81) 99 09/27/17 00:27 99 Nasal Cannula 2.00 09/26/17 20:30 89 14 122/75 (91) 100 Nasal Cannula 2 Coded Allergies: calcium carbonate (Unverified Allergy, Intermediate, HIVES, 07/08/17) cephalexin (Unverified Allergy, Intermediate, HIVES, 07/08/17) Exam-Podiatry Remarks dressing clean, dry, intact bilaterally Assessment & Plan A/P 1. Septic joint and osteomyelitis Right and Left 5th Metatarsophalangeal joints 2. Possible osteomyelitis left 4th toe/metatarsal head 3. Abscess Right and Left foot status post 1. partial 5th ray amputation right and left feet 2. left 4th metatarsal head resection 3. bone biopsy left 4th toe on 09/27/17 Plan to change bandage tomorrow to determine if discharge will be ok. Strict nonweightbearing bilateral feet. Please check culture results from clinic left in front of chart to assist with antibiotic choice for this patient. Await bone biopsy to guide length of time on IV antibiotics: I do not think patient will stay in house long enough for bone biopsy to come back. Suggest perhaps PICC and IV antibiotics arranged based on culture results in chart to be set up x 6 weeks anyway due to patient's immunocompromise/ comorbidities? If a wound vac is applied to left foot, it will be arranged by me as outpatient to possibly be initiated after surrounding sutures are removed. No need to set up now. Zachary Zabala DPM Sep 27, 2017 20:23
[2017-09-27 21:20] VITALS: BP 142/68; PULSE 86; RESP 18; TEMP 97.4; O2SAT 99
[2017-09-27] MEDS: TRESIBA 100 UNIT/ML SQ SCH (22:11)
[2017-09-27] MEDS ORDERED: BISACODYL 10 MG SUPP RECTAL PRN (23:45)
[2017-09-27] MEDS ORDERED: BISACODYL 10 MG SUPP RECTAL ONE (23:45)
[2017-09-28] VITALS (7 sets, daily range): BP systolic 105–132; BP diastolic 59–72; PULSE 79–95; RESP 17–20; TEMP 97.6–98.1; O2SAT 95–99
[2017-09-28] MEDS ORDERED: INSULIN ASPART SUPPLEMENTAL SCALE SQ ONE
[2017-09-28] MEDS: METOCLOPRAMIDE HCL 10 MG TAB PO SCH ×5 (00:08→21:00)
[2017-09-28] MEDS: SODIUM CHLORIDE 0.9% FLUSH 10 ML FLUSH IV FLUSH PRN ×3 (00:56→23:36)
[2017-09-28] MEDS: MORPHINE SULFATE 4 MG/ML INJ IV PUSH PRN ×7 (00:56→23:36)
[2017-09-28] MEDS: ONDANSETRON HCL 4 MG/2 ML VIAL IVP PRN ×2 (03:36→23:35)
[2017-09-28] MEDS: VANCOMYCIN INJ 1,500 MG in SODIUM CHLORID 0.9% 500 ML INJ 500 ML IV SCH ×2 (03:38→14:53)
[2017-09-28] MEDS: LORazepam 1 MG TAB PO PRN ×3 (04:48→21:23)
[2017-09-28] MEDS: PANTOPRAZOLE SOD 40 MG DELAYED RELEASE TAB PO SCH (07:54)
[2017-09-28] MEDS: DOCUSATE SODIUM 50 MG/SENNA 8.6 MG TAB PO SCH ×2 (07:55→21:00)
[2017-09-28] MEDS: INSULIN ASPART SUPPLEMENTAL SCALE SQ SCH ×4 (07:56→21:00)
[2017-09-28] MEDS: SODIUM CHLORIDE 0.9% FLUSH 10 ML FLUSH IV FLUSH SCH ×2 (07:56→21:25)
[2017-09-28 08:30] LABS: AUTOMATED NEUTROPHIL # 8.1 TH/MM3 (1.8-7.7); BASOPHIL # 0.1 TH/MM3 (0-0.2); BASOPHIL % 0.9 % (0.0-2.0); EOSINOPHIL # 0.2 TH/MM3 (0-0.4); EOSINOPHIL % 1.9 % (0.0-4.0); HEMATOCRIT 32.9 % (39.0-51.0); HEMOGLOBIN 10.9 GM/DL (13.0-17.0); LYMPH % 23.9 % (9.0-44.0); LYMPHOCYTE # 2.9 TH/MM3 (1.0-4.8); MEAN CELL VOLUME 90.1 FL (80.0-100.0); MEAN CORPUSCULAR HEMOGLOBIN 29.8 PG (27.0-34.0); MEAN PLATELET VOLUME 8.3 FL (7.0-11.0); MONO % 7.2 % (0.0-8.0); MONOCYTE # 0.9 TH/MM3 (0-0.9); NEUT % 66.1 % (16.0-70.0); PLATELET COUNT 604 TH/MM3 (150-450); RED BLOOD COUNT 3.66 MIL/MM3 (4.50-5.90); RED CELL DISTRIBUTION WIDTH 16.3 % (11.6-17.2); WHITE BLOOD COUNT 12.2 TH/MM3 (4.0-11.0)
[2017-09-28 08:58] LABS: BICARBONATE 32.6 MEQ/L (21.0-32.0); CALCIUM 8.9 MG/DL (8.5-10.1); CREATININE 0.64 MG/DL (0.60-1.30); MAGNESIUM 2.3 MG/DL (1.5-2.5)
--- NOTE | 2017-09-28 12:06 | HHI.PR ---
Subjective Remarks No new complaints Afebrile Objective Vitals Vital Signs Date Time Temp Pulse Resp B/P (MAP) Pulse Ox O2 Delivery O2 Flow Rate FiO2 09/28/17 08:34 97.8 81 20 118/59 (78) 97 09/28/17 04:55 97.8 89 18 121/61 (81) 99 09/28/17 01:20 97.8 95 18 105/69 (81) 95 09/27/17 21:20 97.4 86 18 142/68 (92) 99 09/27/17 12:31 97.7 80 20 118/74 (89) 98 Result Diagram: 09/28/17 0722 09/28/17 0722 Other Results Laboratory Tests Test 09/28/17 07:22 White Blood Count 12.2 TH/MM3 Red Blood Count 3.66 MIL/MM3 Hemoglobin 10.9 GM/DL Hematocrit 32.9 % Mean Corpuscular Volume 90.1 FL Mean Corpuscular Hemoglobin 29.8 PG Mean Corpuscular Hemoglobin Concent 33.0 % Red Cell Distribution Width 16.3 % Platelet Count 604 TH/MM3 Mean Platelet Volume 8.3 FL Neutrophils (%) (Auto) 66.1 % Lymphocytes (%) (Auto) 23.9 % Monocytes (%) (Auto) 7.2 % Eosinophils (%) (Auto) 1.9 % Basophils (%) (Auto) 0.9 % Neutrophils # (Auto) 8.1 TH/MM3 Lymphocytes # (Auto) 2.9 TH/MM3 Monocytes # (Auto) 0.9 TH/MM3 Eosinophils # (Auto) 0.2 TH/MM3 Basophils # (Auto) 0.1 TH/MM3 CBC Comment DIFF FINAL Differential Comment Hematology Comments Blood Urea Nitrogen 18 MG/DL Creatinine 0.64 MG/DL Random Glucose 98 MG/DL Calcium Level 8.9 MG/DL Magnesium Level 2.3 MG/DL Sodium Level 138 MEQ/L Potassium Level 4.0 MEQ/L Chloride Level 101 MEQ/L Carbon Dioxide Level 32.6 MEQ/L Anion Gap 4 MEQ/L Estimat Glomerular Filtration Rate 150 ML/MIN Imaging Last Impressions Foot X-Ray 09/26/17 0000 Signed Impressions: Service Date/Time: Tuesday, September 26, 2017 20:12 - CONCLUSION: 1. Postoperative resection of distal right fifth metatarsal. Wilder Alas MD Objective Remarks General: NAD, AAOx3 Chest: CTA Cardiac: Regular Abd: +BS, soft ND/NT Ext: bilateral feet bandages are c/d/i, no edema A/P Problem List: (1) Osteomyelitis ICD Codes: M86.9 - Osteomyelitis, unspecified Status: Acute Plan: Osteomyelitis - This is a 27-year-old male patient with past medical history which includes anxiety, DM peripheral neuropathy, gastroparesis, Dx with celiac artery compression at [facility] looking into surgery with Dr. Moran. - Patient was sent today by his meal grinder tender due to concerns of osteomyelitis after an outpatient MRI. - Patient reports he had been on Bactrim outpatient prior to coming to the hospital today. - Patient was given Zosyn and vancomycin in the ER, ABX were held until surgical cultures obtained - Pt underwent partial 5th ray amputation right and left feet, left 4th metatarsal head resection, and bone biopsy left 4th toe on 09/26/[address] Zabala - Pt was started on Vancomycin on 09/27 with pharmacy to dose - Surgical cultures with no growth in 48 hours. - Pathology is pending - Pt had an outpt culture from the podiatrists office which grew out beta hemolytic strep - Consult ID for guidance on antibiotic regimen - [place] and Morphine as needed for pain Diabetes Mellitus - Diabetic diet after the procedure - Accu-checks ACHS with SSI, we will lower to low-dose SSI - Pt resumed on Tresiba 26 units @ 10PM Gastroparesis - Continue home Reglan 10 mg ACHS - Zofran as needed for N/V Anxiety - Continue patient's home Ativan 1 mg PO Q8H as needed for anxiety DVT prophylaxis with SCDs (2) Diabetes mellitus ICD Codes: E11.9 - Type 2 diabetes mellitus without complications Status: Chronic (3) Anxiety ICD Codes: F41.9 - Anxiety disorder, unspecified Status: Chronic (4) Gastroparesis ICD Codes: K31.84 - Gastroparesis Status: Chronic Assessment and Plan Patient examined. Assessment and plan formulated with Louise Alcantara PA-C. I agree with the above. pt s/p 5th ray resection bilaterally and 4rth met head resection. path pending and ngtd on surgical cx meal grinder tender brought in a cx from office. group b strep...will ask ID for abx opinion and rx. Louise Alcantara Sep 28, 2017 12:06 Nehemiah Smalls MD Sep 28, 2017 13:11
--- NOTE | 2017-09-28 17:01 | PD.POD ---
Subjective Podiatric Problems 1. Septic joint and osteomyelitis Right and Left 5th Metatarsophalangeal joints 2. Possible osteomyelitis left 4th toe/metatarsal head 3. Abscess Right and Left foot status post 1. partial 5th ray amputation right and left feet 2. left 4th metatarsal head resection 3. bone biopsy left 4th toe on 09/27/17 Past Med/Surg/Social History Social History Smoking Status: Current Every Day Smoker Objective Vital Signs Vital Signs Date Time Temp Pulse Resp B/P (MAP) Pulse Ox O2 Delivery O2 Flow Rate FiO2 09/28/17 12:46 97.6 80 20 132/65 (87) 98 09/28/17 12:28 97 Nasal Cannula 2.00 09/28/17 08:34 97.8 81 20 118/59 (78) 97 09/28/17 04:55 97.8 89 18 121/61 (81) 99 09/28/17 01:20 97.8 95 18 105/69 (81) 95 09/27/17 21:20 97.4 86 18 142/68 (92) 99 Coded Allergies: calcium carbonate (Unverified Allergy, Intermediate, HIVES, 07/08/17) cephalexin (Unverified Allergy, Intermediate, HIVES, 07/08/17) magnesium hydroxide (Verified Allergy, Unknown, Hives, 09/27/17) magnesium hydroxide (Verified Allergy, Unknown, Hives, 09/27/17) Other Results Vital Signs Date Time Temp Pulse Resp B/P (MAP) Pulse Ox O2 Delivery O2 Flow Rate FiO2 09/28/17 12:46 97.6 80 20 132/65 (87) 98 09/28/17 12:28 97 Nasal Cannula 2.00 09/28/17 08:34 97.8 81 20 118/59 (78) 97 09/28/17 04:55 97.8 89 18 121/61 (81) 99 09/28/17 01:20 97.8 95 18 105/69 (81) 95 09/27/17 21:20 97.4 86 18 142/68 (92) 99 Microbiology Date/Time Source Procedure Growth Status 09/25/17 12:30 Blood Peripheral Aerobic Blood Culture - Preliminary NO GROWTH IN 3 DAYS Resulted 09/25/17 12:30 Blood Peripheral Anaerobic Blood Culture - Preliminary NO GROWTH IN 3 DAYS Resulted 09/26/17 17:43 Wound Foot Fungal Smear - Final NO FUNGAL ELEMENTS SEEN. Resulted 09/26/17 17:43 Wound Foot Fungal Culture Pending Resulted Exam-Podiatry Remarks Sutures intact bilaterally. No purulence, no malodor. No necrosis. Assessment & Plan A/P 1. Septic joint and osteomyelitis Right and Left 5th Metatarsophalangeal joints 2. Possible osteomyelitis left 4th toe/metatarsal head 3. Abscess Right and Left foot status post 1. partial 5th ray amputation right and left feet 2. left 4th metatarsal head resection 3. bone biopsy left 4th toe on 09/27/17 Bandages changed. Surgical sites very healthy in appearance with nylon suture intact. No further surgery anticipated. Ok with DC when ok per Infectious diseases with antibiotic recommendations. Patient has appt with me in clinic next p.m. Bone biopsy results: Bone margins clear to 5th metatarsal residual bilaterally 4th metatarsal head clear of osteomyelitis Appears 4th toe base showed Osteomyelitis, and since rest of digit is left, patient needs to be treated for osteomyelitis. Since no growth on cultures taken intraoperatively, must rely on my deep cultures from abscess I&D in clinic last week. Zachary Zabala DPM Sep 28, 2017 17:01
--- NOTE | 2017-09-28 19:30 | PD.ID.CON ---
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 He is poorly controlled with last Hb A1 C of 11, previously even worse with 18 He developped neuropathy x 2 yrs He noticed calluses on b/l feet 2 weeks ago, then he developped blisters, abscesses Patient first presented to my clinic last week after leaving [facility] against medical advice. He had labs drawn, but no MRI. When in clinic, aggressive wound debridement and cultures were performed and outpatient labs and MRI ordered. Received call from radiologist Sunday regarding findings and emergent nature of them and called patient to encourage to go in for surgery and medical management of his infections. He has had calluses due to walking barefoot without shoes for a long time and lack of maintenance. 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 He is allergic to keflex, but apparently took uneventfully penicillin Review of Systems Except as stated in HPI: all other systems reviewed are Neg Past Family Social History Allergies: Coded Allergies: calcium carbonate (Unverified Allergy, Intermediate, HIVES, 07/08/17) cephalexin (Unverified Allergy, Intermediate, HIVES, 07/08/17) magnesium hydroxide (Verified Allergy, Unknown, Hives, 09/27/17) magnesium hydroxide (Verified Allergy, Unknown, Hives, 09/27/17) Past Medical History insulin dependent DM post pancreatectomy Past Surgical History sp pancreatectomy sp spleenectomy Active Ordered Medications Medications where reviewed in EMR Antibiotics Include: vancomycin Family History Mother: HTN Factor V deficiency Social History Social History Smoke 1 PPD denies ETOH use no IVDU Physical Exam Vital Signs Vital Signs Date Time Temp Pulse Resp B/P (MAP) Pulse Ox O2 Delivery O2 Flow Rate FiO2 09/28/17 12:46 97.6 80 20 132/65 (87) 98 09/28/17 12:28 97 Nasal Cannula 2.00 09/28/17 08:34 97.8 81 20 118/59 (78) 97 09/28/17 04:55 97.8 89 18 121/61 (81) 99 09/28/17 01:20 97.8 95 18 105/69 (81) 95 09/27/17 21:20 97.4 86 18 142/68 (92) 99 Physical Exam CONSTITUTIONAL/GENERAL: This is an adequately nourished patient, in no apparent distress. TUBES/LINES/DRAINS: SKIN: No jaundice, rashes, or lesions. Ecchymoses on upper extremities. No wounds seen anteriorly. Skin temperature appropriate. Not diaphoretic. HEAD: Atraumatic. Normocephalic. EYES: Pupils equal and round and reactive. Extraocular motions intact. No scleral icterus. No injection or drainage. Fundi not examined. ENT: Hearing grossly normal. Nose without bleeding or purulent drainage. Oral mucosae without visible erythema, exudates, masses, or lesions. NECK: Trachea midline. Supple, nontender. No palpable thyroid enlargement or nodularity. CARDIOVASCULAR: Regular rate and rhythm without murmurs, gallops, or rubs. No JVD. Peripheral pulses symmetric. RESPIRATORY/CHEST: Symmetric, unlabored respirations. Clear to auscultation. Breath sounds equal bilaterally. No wheezes, rales, or rhonchi. GASTROINTESTINAL: Abdomen soft, non-tender, nondistended. No hepato-splenomegaly , or palpable masses. No guarding. Bowel sounds present. MUSCULOSKELETAL: Extremities without clubbing, cyanosis, or edema. Surgical dressings in place with no staining : pt was instructed not to remove dressings for 1 week no erythema, no edema proximally NEUROLOGICAL: Awake and alert. Motor and sensory grossly within normal limits. Follows commands. Clear speech. Moves all extremities. PSYCHIATRIC: No obvious anxiety/depression. no apparent hallucinations or other psychotic thought process. Laboratory Laboratory Tests Test 09/28/17 07:22 White Blood Count 12.2 Red Blood Count 3.66 Hemoglobin 10.9 Hematocrit 32.9 Mean Corpuscular Volume 90.1 Mean Corpuscular Hemoglobin 29.8 Mean Corpuscular Hemoglobin Concent 33.0 Red Cell Distribution Width 16.3 Platelet Count 604 Mean Platelet Volume 8.3 Neutrophils (%) (Auto) 66.1 Lymphocytes (%) (Auto) 23.9 Monocytes (%) (Auto) 7.2 Eosinophils (%) (Auto) 1.9 Basophils (%) (Auto) 0.9 Neutrophils # (Auto) 8.1 Lymphocytes # (Auto) 2.9 Monocytes # (Auto) 0.9 Eosinophils # (Auto) 0.2 Basophils # (Auto) 0.1 CBC Comment DIFF FINAL Differential Comment Hematology Comments Blood Urea Nitrogen 18 Creatinine 0.64 Random Glucose 98 Calcium Level 8.9 Magnesium Level 2.3 Sodium Level 138 Potassium Level 4.0 Chloride Level 101 Carbon Dioxide Level 32.6 Anion Gap 4 Estimat Glomerular Filtration Rate 150 Date/Time Source Procedure Growth Status 09/25/17 12:30 Blood Peripheral Aerobic Blood Culture - Preliminary NO GROWTH IN 3 DAYS Resulted 09/25/17 12:30 Blood Peripheral Anaerobic Blood Culture - Preliminary NO GROWTH IN 3 DAYS Resulted 09/26/17 17:43 Wound Foot Fungal Smear - Final NO FUNGAL ELEMENTS SEEN. Resulted 09/26/17 17:43 Wound Foot Fungal Culture Pending Resulted Result Diagram: 09/28/17 0722 09/28/17 0722 Imaging Last Impressions Foot X-Ray 09/26/17 0000 Signed Impressions: Service Date/Time: Tuesday, September 26, 2017 20:12 - CONCLUSION: 1. Postoperative resection of distal right fifth metatarsal. Wilder Alas MD Assessment and Plan Assessment and Plan 1. Septic joint and osteomyelitis Right and Left 5th Metatarsophalangeal joints 2. Possible osteomyelitis left 4th toe/metatarsal head 3. Abscess Right and Left foot status post 1. partial 5th ray amputation right and left feet 2. left 4th metatarsal head resection 3. bone biopsy left 4th toe on 09/27/17 Clx are still P preliminary negative Pt was recommended to take IV antibiotics, but he refused because he does not want any IV lines He wants to be treated with oral abx I explained to him that the treatment is IV, but he is refusing to take IV abx and fully understands the risk he is willing to take I have to use abx with high bioavailablility and broad spectrum P clx results ' will doscharge on clindamycin and levaqine P culture results F/u with Dr Samm Green as scheduled Scripts written and put on the chart OK to dc pt Patricia Oakes MD Sep 28, 2017 19:29
[2017-09-28] MEDS ORDERED: LEVA750T9 PO (21:02)
[2017-09-28] MEDS ORDERED: CLIN300C5 PO (21:02)
[2017-09-28] MEDS: TRESIBA 100 UNIT/ML SQ SCH (22:00)
[2017-09-29] MEDS ORDERED: PHARMACY ORDERED LAB ONE (02:45)
[2017-09-29] MEDS: MORPHINE SULFATE 4 MG/ML INJ IV PUSH PRN ×3 (03:50→11:55)
[2017-09-29] MEDS: SODIUM CHLORIDE 0.9% FLUSH 10 ML FLUSH IV FLUSH PRN ×2 (03:50→06:43)
[2017-09-29 06:25] VITALS: BP 113/71; PULSE 83; RESP 20; TEMP 97.3; O2SAT 99
[2017-09-29] MEDS: VANCOMYCIN INJ 1,500 MG in SODIUM CHLORID 0.9% 500 ML INJ 500 ML IV SCH (06:39)
[2017-09-29] MEDS: ONDANSETRON HCL 4 MG/2 ML VIAL IVP PRN ×2 (06:41→12:02)
[2017-09-29] MEDS: METOCLOPRAMIDE HCL 10 MG TAB PO SCH ×2 (07:15→11:53)
[2017-09-29 08:00] VITALS: BP 105/65; PULSE 88; RESP 18; TEMP 98.4; O2SAT 99
[2017-09-29] MEDS: INSULIN ASPART SUPPLEMENTAL SCALE SQ SCH ×2 (08:00→12:10)
[2017-09-29] MEDS: DOCUSATE SODIUM 50 MG/SENNA 8.6 MG TAB PO SCH (08:13)
[2017-09-29] MEDS: PANTOPRAZOLE SOD 40 MG DELAYED RELEASE TAB PO SCH (08:13)
[2017-09-29] MEDS: SODIUM CHLORIDE 0.9% FLUSH 10 ML FLUSH IV FLUSH SCH (08:14)
[2017-09-29 09:29] LABS: BASOPHIL # 0.1 TH/MM3 (0-0.2); BASOPHIL % 0.9 % (0.0-2.0); EOSINOPHIL # 0.2 TH/MM3 (0-0.4); EOSINOPHIL % 2.1 % (0.0-4.0); HEMATOCRIT 28.9 % (39.0-51.0); HEMOGLOBIN 9.6 GM/DL (13.0-17.0); LYMPH % 26.8 % (9.0-44.0); MEAN CELL VOLUME 90.3 FL (80.0-100.0); MEAN CORPUSCULAR HGB CONC 33.2 % (32.0-36.0); MEAN PLATELET VOLUME 8.6 FL (7.0-11.0); MONO % 6.4 % (0.0-8.0); MONOCYTE # 0.7 TH/MM3 (0-0.9); NEUT % 63.8 % (16.0-70.0); PLATELET COUNT 864 TH/MM3 (150-450); RED CELL DISTRIBUTION WIDTH 16.2 % (11.6-17.2)
[2017-09-29] MEDS ORDERED: HYDR-3516 PO (10:04)
--- NOTE | 2017-09-29 10:04 | HHI.DCPOC ---
Discharge Care Plan Diagnosis: (1) Osteomyelitis Goals to Promote Your Health * To prevent worsening of your condition and complications * To maintain your health at the optimal level Directions to Meet Your Goals Take your medications as prescribed Follow your dietary instruction Follow activity as directed Keep your appointments as scheduled Take your immunizations and boosters as scheduled If your symptoms worsen call your PCP, if no PCP go to Urgent Care Center or Emergency Room Smoking is Dangerous to Your Health. Avoid second hand smoke Call the 24-hour hour crisis hotline for domestic abuse at Nehemiah Smalls MD Sep 29, 2017 10:04
--- NOTE | 2017-09-29 10:09 | HHI.DS ---
Discharge Summary Admission Date Sep 25, 2017 at 13:33 Discharge Date: Sep 29, 2017 Admitting Diagnosis foot osteomyelitis/sepsis (1) Osteomyelitis Diagnosis: Principal ICD Codes: M86.9 - Osteomyelitis, unspecified Status: Acute (2) Diabetes mellitus Diagnosis: Secondary ICD Codes: E11.9 - Type 2 diabetes mellitus without complications Status: Chronic (3) Anxiety Diagnosis: Secondary ICD Codes: F41.9 - Anxiety disorder, unspecified Status: Chronic (4) Gastroparesis Diagnosis: Secondary ICD Codes: K31.84 - Gastroparesis Status: Chronic Brief History This is a 27-year-old male patient with past medical history which includes anxiety, DM peripheral neuropathy, gastroparesis, Dx with celiac artery compression at [facility] looking into surgery with Dr. Moran. Patient seen with his fiance at bedside. Patient reports he has had calluses BLE for a long time, from walking barefoot. About two weeks ago patient noticed blisters foamed over the calluses and then the blistered opened and he has had large nonhealing ulcerations. Patient was sent today by his sausage cutter due to concerns of osteomyelitis after an outpatient MRI. Patient reports he had been on Bactrim outpatient prior to coming to the hospital today. Social Work Coordinator plans for foot surgery tomorrow. Patient denies fevers, chills, shortness of breath or chest pain. CBC/BMP: 09/29/17 0757 09/28/17 0722 Significant Findings Laboratory Tests Test 09/28/17 07:22 09/29/17 07:57 White Blood Count 12.2 TH/MM3 (4.0-11.0) Red Blood Count 3.66 MIL/MM3 (4.50-5.90) 3.20 MIL/MM3 (4.50-5.90) Hemoglobin 10.9 GM/DL (13.0-17.0) 9.6 GM/DL (13.0-17.0) Hematocrit 32.9 % (39.0-51.0) 28.9 % (39.0-51.0) Platelet Count 604 TH/MM3 (150-450) 864 TH/MM3 (150-450) Neutrophils # (Auto) 8.1 TH/MM3 (1.8-7.7) Carbon Dioxide Level 32.6 MEQ/L (21.0-32.0) Anion Gap 4 MEQ/L (5-15) Hospital Course Osteomyelitis - This is a 27-year-old male patient with past medical history which includes anxiety, DM peripheral neuropathy, gastroparesis, Dx with celiac artery compression at [facility] looking into surgery with Dr. Moran. - Patient was sent today by his sausage cutter due to concerns of osteomyelitis after an outpatient MRI. - Patient reports he had been on Bactrim outpatient prior to coming to the hospital today. - Patient was given Zosyn and vancomycin in the ER, ABX were held until surgical cultures obtained - Pt underwent partial 5th ray amputation right and left feet, left 4th metatarsal head resection, and bone biopsy left 4th toe on 09/26/[address] Zabala - Pt was started on Vancomycin on 09/27 with pharmacy to dose - Surgical cultures with no growth in 48 hours. - Pathology is pending - Pt had an outpt culture from the podiatrists office which grew out beta hemolytic strep - Consulted ID for guidance on antibiotic regimen - Pt was recommended iv abx but he refused and ID placed orders for 6weeks po abx. -f/u this week with outpt ID appt and Podiatry. Leave bandaged in place to be opened by Podiatry. Pt Condition on Discharge: Stable Discharge Disposition: Discharge Home Discharge Instructions DIET: Follow Instructions for: Diabetic Diet Activities you can perform: Weight Bearing as Aretha Follow up Referrals: Infectious Disease - 3-5 Days with [facility] - 10/04/17 with Zachary Zabala DPM New Medications: Clindamycin (Clindamycin) 300 Mg Cap 300 MG PO Q6H for Infection for 42 Days, #168 CAP 0 Refills Levofloxacin (Levaquin) 750 Mg Tablet 750 MG PO DAILY for Infection for 42 Days, #42 TAB 0 Refills Continued Medications: Hydrocodone-Acetaminophen (Hydrocodone-Acetaminophen) 5-325 mg Tab 1 TAB PO Q4H PRN for PAIN, #30 TAB 0 Refills (This prescription has been renewed ) Insulin Aspart Inj (Novolog Inj) 1,000 Unit/10 Ml Vial 0 SQ DIRECTED for Blood Sugar Management, #10 ML 0 Refills Sliding Scale as directed. Insulin Degludec Inj (Tresiba Flextouch Pen Inj) Unknown Strength Pen 26 UNITS SQ DAILY for Blood Sugar Management, #15 ML 0 Refills Lidocaine Viscous Liq (Lidocaine Viscous Liq) 2 % Liqd 10 ML SWISH-SWAL QID PRN for PAIN, #1 BOTTLE 0 Refills Lorazepam (Ativan) 1 Mg Tab 1 MG PO Q8H PRN for ANXIETY AND/OR AGITATION, TAB 0 Refills Metoclopramide (Reglan) 10 Mg Tab 10 MG PO QID, #120 TAB 0 Refills Ondansetron (Zofran) 4 Mg Tab 4 MG PO Q12HR PRN for NAUSEA OR VOMITING, TAB 0 Refills Ondansetron HCl/Pf (Ondansetron HCl 4 mg/2 ml Amp) 4 Mg/2 Ml Ampul 4 MG IM Q4HR PRN for NAUSEA Pantoprazole (Protonix) 40 Mg Tab 40 MG PO DAILY for Reflux, #30 TAB 0 Refills Promethazine (Phenergan) 25 Mg Tablet 25 MG PO Q6H PRN for NAUSEA OR VOMITING, TAB 0 Refills Promethazine Inj (Phenergan Inj) 25 Mg/Ml Inj 25 MG IM Q6H PRN for NAUSEA, VIAL Nehemiah Smalls MD Sep 29, 2017 10:09
[2017-09-29] MEDS ORDERED: HYDR-3288 PO (10:12)
--- NOTE | 2017-10-02 19:24 | MP ---
cc: LEXI ROSE DPTalia DATE OF 1990 DATE OF SURGERY 09/26/2017 HISTORY The patient presented to my clinic after he had been seen at [facility] with infections to bilateral feet with chronic wounds. He was noted to have a white count in the 20s. He wound up leaving against medical advice at [facility] because he was tired of staying at the hospital. I saw him in the clinic the next day as a walk-in where I noted that his infection was significant in both of his feet. The wounds did probe all the way down to bone of the fifth metatarsophalangeal joint area. I encouraged him to consider going back to the hospital and he refused and agreed to get an MRI as an outpatient. Upon reviewing this results in the MRI that showed a septic joint to bilateral fifth metatarsophalangeal joints as well as possible osteomyelitis of the fourth metatarsophalangeal joint. I discussed with the patient that in order to have any limb salvage hope that he needed to go to the hospital a.s.a.p. He did go Hospital. We discussed risks, benefits, potential complications with him and he was agreeable to undergo surgery for partial fifth ray amputation right and left feet with left fourth metatarsal head resection and bone biopsy of the left fourth toe in an attempt to limb salvage. The patient was seen in preop holding by myself, nursing staff and Anesthesia where the correct patient side, limb site were all confirmed to be correct on the right and left feet. He was then taken back to the surgical suite, placed in supine position where bilateral feet were prepped and draped in normal sterile fashion. Attention was first directed to the right lateral aspect of the foot and after timeouts were performed as per facility protocol, attention was directed to that lateral aspect of right foot where incision was made encompassing the fifth digit. In order to excise the plantar lateral ulceration and make an incision all the way down to the area of the fifth metatarsophalangeal joint where the fifth metatarsal was transected midshaft and the distal aspect of fifth metatarsal and fifth digit with the wound were removed and sent as specimen to pathology. Culture was also taken of this right foot and another piece of bone from the residual fifth metatarsal was also sent to pathology of the bone biopsy followed by irrigation and primary closure with 2-0 Vicryl suture. No michelle purulence was noted. The area was copiously irrigated with 3 liters normal saline followed by closure with 2-0 nylon followed by dressing consisting of Xeroform, 4x4s, ABD, cast padding and Srikanth bandage to the right lower extremity. Attention was then directed the left lateral foot where the same procedure was performed. Following this, dissection was taken further down to the area of the fourth metatarsal head and the fourth metatarsal head was resected as well as the base of the proximal phalanx of the fourth digit. Both of these were also sent to pathology to be examined for possible osteomyelitis as well. Following this the area was noted to have no michelle purulence within the area, followed by culture of the wound and irrigation with 3 liters normal saline followed by primary closure with 2-0 nylon suture followed by dressing consisting of Xeroform, 4x4s, ABD, cast padding and Srikanth to the left lower extremity. The patient tolerated the procedure and anesthesia well without complications and was taken back to PACU with vital signs stable and vascular status intact to the remainder of bilateral feet. He will be non-weightbearing bilaterally and follow up in clinic in 1 week for wound check and eventual suture removal. SHORT OPERATIVE NOTE SURGEON Lexi Rose WASTE MANAGEMENT SPECIALIST Staff PREOPERATIVE DIAGNOSES 1. Septic joint and osteomyelitis right and left fifth metatarsophalangeal joint. 2. Possible osteomyelitis left fourth toe and metatarsal head. 3. Abscess right and left feet. POSTOPERATIVE DIAGNOSES 1. Septic joint and osteomyelitis right and left fifth metatarsophalangeal joint. 2. Possible osteomyelitis left fourth toe and metatarsal head. 3. Abscess right and left feet. PROCEDURE 1. Partial fifth ray amputation right and left feet with bone biopsy. 2. Left fourth metatarsal head resection. 3. Bone biopsy left fourth toe proximal phalanx. PATHOLOGY 1. Partial fifth ray right. 2. Partial fifth ray left. 3. Bone of residual fifth metatarsal right. 4. Bone of residual fifth metatarsal left. 5. Fourth metatarsal head bone biopsy. 6. Base of fourth proximal phalanx bone biopsy. 7. Culture right foot. 8. Culture left foot. COMPLICATIONS None DISPOSITION Non-weightbearing bilateral lower extremity. Follow up in clinic in the week. ANESTHESIA General endotracheal anesthesia plus 10 mL of 0.5% Marcaine plain. TOURNIQUET TIME Right calf at 250 mmHg times 30 minutes. Left calf at 250 mmHg times 42 minutes. CONDITION Stable to postanesthesia care unit. Lexi LOPEZ /2:31 PM /6:15 PM
== END 2017-09-29 12:30 | disposition home or self-care (01) | DRG 617 ==
LOC: NEPC 11:45 → NEDA 13:33 → N05A 19:25
PROVIDERS: ADMIT Hospitalist; ATTEND Hospitalist
PROC: 0Y6M0ZF Detachment at Right Foot, Partial 5th Ray, Open Approach (ICD-10-PCS; 2017-09-26)
PROC: 0QBP0ZX Excision of Left Metatarsal, Open Approach, Diagnostic (ICD-10-PCS; 2017-09-26)
PROC: 0QBR0ZX Excision of Left Toe Phalanx, Open Approach, Diagnostic (ICD-10-PCS; 2017-09-26)
PROC: 0QBN0ZX Excision of Right Metatarsal, Open Approach, Diagnostic (ICD-10-PCS; 2017-09-26)
PROC: 0Y6N0ZF Detachment at Left Foot, Partial 5th Ray, Open Approach (ICD-10-PCS; principal; 2017-09-26 16:39)
DX: E13.69 Other specified diabetes mellitus with other specified complication (principal); M86.9 Osteomyelitis, unspecified; M00.871 Arthritis due to other bacteria, right ankle and foot; I77.4 Celiac artery compression syndrome; D68.2 Hereditary deficiency of other clotting factors; K31.84 Gastroparesis; M00.872 Arthritis due to other bacteria, left ankle and foot; E13.42 Other specified diabetes mellitus with diabetic polyneuropathy; E13.621 Other specified diabetes mellitus with foot ulcer; F41.9 Anxiety disorder, unspecified; F17.210 Nicotine dependence, cigarettes, uncomplicated; L97.529 Non-pressure chronic ulcer of other part of left foot with unspecified severity; E13.43 Other specified diabetes mellitus with diabetic autonomic (poly)neuropathy; L97.519 Non-pressure chronic ulcer of other part of right foot with unspecified severity; Z79.4 Long term (current) use of insulin; Z79.01 Long term (current) use of anticoagulants; Z90.410 Acquired total absence of pancreas; Z90.81 Acquired absence of spleen
CPT/HCPCS: 73630; 80048; 80053; 82948; 83605; 83735; 85007; 85025; 85027; 87015; 87040; 87070; 87102; 87116; 87205; 87206; 88304; 88305; 88307; 88311; 96365; 96368; J1100; J1815; J1885; J2250; J2270; J2370; J2405; J2543; J2550; J2710; J3010; J3370; J7030; J7040; J7050; J7120

== ENCOUNTER 2017-11-27 16:43 | Emergency (ER) | payer OTHER ==
[~2017-11-27] VITALS: Ht 182.9 cm; Wt 68.2 kg
[~2017-11-27 16:43] MED LIST changes: +CLIN300C5 PO; -DICY10 PO; +HYDR-3288 PO; +LEVA750T9 PO; +LORA-474 PO; +ONDA4INJ IM; +PROM25TA10 PO; +PROM2INJ IM; +REGL10TA5 PO
[2017-11-27 17:08] VITALS: BP 141/81; PULSE 99; RESP 20; TEMP 98.3; O2SAT 99
--- NOTE | 2017-11-27 17:19 | PD ---
HPI Chief Complaint: Abdominal Pain Time Seen by Provider: 17:19 Travel History International Travel<30 days: No Contact w/Intl Traveler<30days: No Traveled to known affect area: No History of Present Illness HPI 27-year-old male came to the emergency room with his fiance with history of abdominal pain, vomiting for past 5 days. Patient has history of gastroparesis and he has had these symptoms multiple times in the past. He has a GI specialist Dr. Monroe. Patient also has history of insulin-dependent diabetes. Blood sugar in triage was 150. Patient says he is vomiting yellowish color vomit. No diarrhea. Abdominal pain is diffuse. No aggravating or relieving factors identified. PFSH Past Medical History Narrative Medical List of his past medical, surgical, social and family history reviewed from the nursing note. Asthma: Yes ( A CHILD) Autoimmune Disease: No Anxiety: No Depression: No Cardiovascular Problems: No Diabetes: Yes Diminished Hearing: No Gastrointestinal Disorders: Yes (GASTROPARESIS) Genitourinary: No Musculoskeletal: Yes Neurologic: No Psychiatric: No Reproductive: No Respiratory: Yes (chest tube) Pancreatitis: Yes Past Surgical History Abdominal Surgery: Yes (CHOLY, SPLENECTOMY, 70% PANCREAS REMOVED AT [facility]) Cholecystectomy: Yes Social History Alcohol Use: No Tobacco Use: Yes (ONE PPD) Substance Use: Yes (MARIJUANA) Allergies-Medications (Allergen,Severity, Reaction): Coded Allergies: calcium carbonate (Verified Allergy, Intermediate, HIVES, 11/28/17) cephalexin (Verified Allergy, Intermediate, HIVES, 11/28/17) magnesium hydroxide (Verified Allergy, Unknown, Hives, 11/28/17) magnesium hydroxide (Verified Allergy, Unknown, Hives, 11/28/17) Comments List of his allergies reviewed from the nursing note. Reported Meds & Prescriptions Reported Meds & Active Scripts Active Diphenhydramine Liq (Diphenhydramine HCl) 12.5 Mg/5 Ml Elix 12.5 Mg PO Q6H PRN Lidocaine Viscous Liq 2 % Liqd 5 Ml SWISH-SWAL DIRECTED PRN Zofran Odt (Ondansetron Odt) 4 Mg Tab 4 Mg SL Q8HR PRN [place] (Hydrocodone-Acetaminophen) 7.5-325 mg Tab 1 Tab PO Q4H PRN Lidocaine Viscous Liq 2 % Liqd 10 Ml SWISH-SWAL QID PRN Protonix (Pantoprazole Sodium) 40 Mg Tab 40 Mg PO DAILY Reported Ativan (Lorazepam) 1 Mg Tab 1 Mg PO Q8H PRN Ondansetron HCl 4 mg/2 ml Amp (Ondansetron HCl/Pf) 4 Mg/2 Ml Ampul 8 Mg IM Q4HR PRN Phenergan Inj (Promethazine HCl) 25 Mg/Ml Inj 25 Mg IM Q6H PRN Phenergan (Promethazine HCl) 25 Mg Tablet 25 Mg PO Q6H PRN Reglan (Metoclopramide HCl) 10 Mg Tab 10 Mg PO QID Zofran (Ondansetron HCl) 4 Mg Tab 4 Mg PO Q12HR PRN Tresiba Flextouch Pen Inj (Insulin Degludec Inj) Unknown Strength Pen 22 Units SQ DAILY Novolog Inj (Insulin Aspart) 1,000 Unit/10 Ml Vial 0 SQ DIRECTED Sliding Scale as directed. Narrative Medication List of his home medications reviewed from the nursing note. Review of Systems Except as stated in HPI: all other systems reviewed are Neg Gastrointestinal: Positive: Nausea, Vomiting, Abdominal Pain Physical Exam Narrative GENERAL: Awake, alert, anxious, significant distress SKIN: Focused skin assessment warm/dry. Pale HEAD: Atraumatic. Normocephalic. EYES: Pupils eand round. No scleral icterus. No injection or drainage. ENT: No nasal bleeding or discharge. Mucous membranes pink and moist. NECK: Trachea midline. No JVD. CARDIOVASCULAR: Regular rate and rhythm. No murmur appreciated. RESPIRATORY: No accessory muscle use. Clear to auscultation. Breath sounds equal bilaterally. GASTROINTESTINAL: Abdomen soft, non-tender, nondistended. Absent bowel sounds. Hepatic and splenic margins not palpable. MUSCULOSKELETAL: No obvious deformities. No clubbing. No cyanosis. No edema. NEUROLOGICAL: Awake and alert. No obvious cranial nerve deficits. Motor grossly within normal limits. Normal speech. PSYCHIATRIC: Appropriate mood and affect; insight and judgment normal. Data Data Last Documented VS Orders Orders Complete Blood Count With Diff (11/27/17 17:10) Comprehensive Metabolic Panel (11/27/17 17:10) Lipase (11/27/17 17:10) Urinalysis - C+S If Indicated (11/27/17 17:10) Act Partial Throm Time (Ptt) (11/27/17 17:10) Prothrombin Time / Inr (Pt) (11/27/17 17:10) Sodium Chlor 0.9% 1000 Ml Inj (Ns 1000 M (11/27/17 17:30) Metoclopramide Inj (Reglan Inj) (11/27/17 17:30) Morphine Inj (Morphine Inj) (11/27/17 17:30) Abdomen, Upright Only (11/27/17 ) Ct Abd/Pel W Iv Contrast(Rout) (11/27/17 ) Oral Contrast - Adult (11/27/17 19:38) Ondansetron Inj (Zofran Inj) (11/27/17 20:00) Diatrizoate Liq ( Gastroview Liq) (11/27/17 19:52) Hydromorphone Pf Inj (Dilaudid Pf Inj) (11/27/17 20:00) Sodium Chlor 0.9% 1000 Ml Inj (Ns 1000 M (11/27/17 21:30) Iohexol 350 Inj (Omnipaque 350 Inj) (11/27/17 22:07) Hydromorphone Pf Inj (Dilaudid Pf Inj) (11/27/17 23:30) Ondansetron Inj (Zofran Inj) (11/27/17 23:30) Ed Discharge Order (11/27/17 23:47) Labs Laboratory Tests Test 11/27/17 18:00 11/27/17 22:00 White Blood Count 19.6 TH/MM3 Red Blood Count 3.50 MIL/MM3 Hemoglobin 10.2 GM/DL Hematocrit 31.1 % Mean Corpuscular Volume 88.9 FL Mean Corpuscular Hemoglobin 29.1 PG Mean Corpuscular Hemoglobin Concent 32.7 % Red Cell Distribution Width 14.3 % Platelet Count 505 TH/MM3 Mean Platelet Volume 9.2 FL Neutrophils (%) (Auto) 88.6 % Lymphocytes (%) (Auto) 7.0 % Monocytes (%) (Auto) 3.8 % Eosinophils (%) (Auto) 0.0 % Basophils (%) (Auto) 0.6 % Neutrophils # (Auto) 17.3 TH/MM3 Lymphocytes # (Auto) 1.4 TH/MM3 Monocytes # (Auto) 0.7 TH/MM3 Eosinophils # (Auto) 0.0 TH/MM3 Basophils # (Auto) 0.1 TH/MM3 CBC Comment DIFF FINAL Differential Comment Prothrombin Time 11.0 SEC Prothromb Time International Ratio 1.1 RATIO Activated Partial Thromboplast Time 28.2 SEC Blood Urea Nitrogen 10 MG/DL Creatinine 0.68 MG/DL Random Glucose 160 MG/DL Total Protein 7.9 GM/DL Albumin 2.9 GM/DL Calcium Level 8.8 MG/DL Alkaline Phosphatase 129 U/L Aspartate Amino Transf (AST/SGOT) 19 U/L Alanine Aminotransferase (ALT/SGPT) 6 U/L Total Bilirubin 0.4 MG/DL Sodium Level 136 MEQ/L Potassium Level 4.0 MEQ/L Chloride Level 100 MEQ/L Carbon Dioxide Level 26.3 MEQ/L Anion Gap 10 MEQ/L Estimat Glomerular Filtration Rate 140 ML/MIN Lipase 35 U/L Urine Color YELLOW Urine Turbidity CLEAR Urine pH 6.5 Urine Specific [place] 1.014 Urine Protein NEG mg/dL Urine Glucose (UA) 150 mg/dL Urine Ketones 10 mg/dL Urine Occult Blood NEG Urine Nitrite NEG Urine Bilirubin NEG Urine Urobilinogen LESS THAN 2.0 MG/DL Urine Leukocyte Esterase NEG Urine RBC 22 /hpf Urine WBC 2 /hpf Urine Calcium Oxalate Crystals FEW /hpf Urine Amorphous Sediment RARE Urine Mucus MOD /lpf Microscopic Urinalysis Comment CULT NOT INDICATED MDM Medical Decision Making Medical Screen Exam Complete: Yes Emergency Medical Condition: Yes Medical Record Reviewed: Yes Differential Diagnosis Gastroparesis, dehydration, electrolyte abnormality Narrative Course 5:57 PM awaiting for the blood test results. Patient has been given IV Reglan, IV morphine for pain and IV fluid bolus. I'll reassess him in a bit. 7:16 PM x-ray of the abdomen came back negative for any obstruction or free air. Awaiting for the blood test result. Case was signed over to the oncoming ER physician. Procedures EKG Prior to Arrival: No Scripts Diphenhydramine Liq (Diphenhydramine Liq) 12.5 Mg/5 Ml Elix 12.5 MG PO Q6H Y for ALLERGIES, #1 BOTTLE 0 Refills Prov: Jeffrey Cedeño MD 11/27/17 Lidocaine Viscous Liq (Lidocaine Viscous Liq) 2 % Liqd 5 ML SWISH-SWAL DIRECTED Y for PAIN, #1 BOTTLE 0 Refills Prov: Jeffrey Cedeño MD 11/27/17 Ondansetron Odt (Zofran Odt) 4 Mg Tab 4 MG SL Q8HR Y for Nausea/Vomiting, #30 TAB 0 Refills Prov: Jeffrey Cedeño MD 11/27/17 Ladonna Tobar MD Nov 27, 2017 17:19
[2017-11-27] MEDS ORDERED: METOCLOPRAMIDE HCL 10 MG/2 ML VIAL IV PUSH ONE (17:30)
[2017-11-27] MEDS ORDERED: MORPHINE SULFATE 8 MG/ML INJ IV PUSH ONE (17:30)
[2017-11-27] MEDS ORDERED: SODIUM CHLOR 0.9% 1000 ML INJ 1,000 ML IV ONE ×2 (17:30→21:30)
--- NOTE | 2017-11-27 18:34 | RADRPT ---
EXAM DATE/TIME: 11/27/2017 18:06 [facility] COMPARISON: No previous studies available for comparison. INDICATIONS : Vomiting for 5 days. MEDICAL HISTORY : Pancreatitis. SURGICAL HISTORY : Cholecystectomy. Splenectomy. Pancreatectomy ENCOUNTER: Initial ACUITY: 4 - 6 days PAIN SCORE: 5/10 LOCATION: Abdomen, upper quadrant. FINDINGS: A single erect view of the abdomen demonstrates the lower lungs to be clear. No evidence of free int raperitoneal gas. The visualized bowel loops are unremarkable. CONCLUSION: Dilated bowel is not seen. Free air is not seen. Pancho Hankins MD on November 27, 2017 at 18:31 Board Certified Radiologist. This report was verified electronically.
[2017-11-27 19:02] LABS: AUTOMATED NEUTROPHIL # 17.3 TH/MM3 (1.8-7.7); BASOPHIL # 0.1 TH/MM3 (0-0.2); BASOPHIL % 0.6 % (0.0-2.0); HEMATOCRIT 31.1 % (39.0-51.0); HEMOGLOBIN 10.2 GM/DL (13.0-17.0); LYMPHOCYTE # 1.4 TH/MM3 (1.0-4.8); MEAN CELL VOLUME 88.9 FL (80.0-100.0); MEAN CORPUSCULAR HEMOGLOBIN 29.1 PG (27.0-34.0); MEAN CORPUSCULAR HGB CONC 32.7 % (32.0-36.0); MEAN PLATELET VOLUME 9.2 FL (7.0-11.0); MONO % 3.8 % (0.0-8.0); MONOCYTE # 0.7 TH/MM3 (0-0.9); NEUT % 88.6 % (16.0-70.0); PLATELET COUNT 505 TH/MM3 (150-450); RED CELL DISTRIBUTION WIDTH 14.3 % (11.6-17.2); WHITE BLOOD COUNT 19.6 TH/MM3 (4.0-11.0)
[2017-11-27 19:04] VITALS: BP 129/71; PULSE 95; RESP 12; O2SAT 97
[2017-11-27 19:09] LABS: INTERNATIONAL NORMALIZED RATIO 1.1 RATIO
[2017-11-27 19:11] LABS: ALBUMIN 2.9 GM/DL (3.4-5.0); AST (GOT) 19 U/L (15-37); BICARBONATE 26.3 MEQ/L (21.0-32.0); BLOOD UREA NITROGEN 10 MG/DL (7-18); CALCIUM 8.8 MG/DL (8.5-10.1); CHLORIDE 100 MEQ/L (98-107); CREATININE 0.68 MG/DL (0.60-1.30); GLOMERULAR FILTRATION RATE 140 ML/MIN (>89); GLUCOSE,RANDOM 160 MG/DL (74-106); SODIUM (NA) 136 MEQ/L (136-145)
[2017-11-27 19:12] LABS: ALT (GPT) 6 U/L (12-78)
[2017-11-27 19:14] LABS: ALKALINE PHOSPHATASE 129 U/L (45-117); TOTAL BILIRUBIN ADULT 0.4 MG/DL (0.2-1.0); TOTAL PROTEIN 7.9 GM/DL (6.4-8.2)
[2017-11-27] MEDS ORDERED: DIATRIZOATE MEGLUM/DIATRIZOATE SOD 9 ML CUP ONE (19:52)
[2017-11-27] MEDS ORDERED: HYDROmorphone HCL PF 1 MG/ML VIAL IV PUSH ONE (20:00)
[2017-11-27] MEDS ORDERED: ONDANSETRON HCL 4 MG/2 ML VIAL IV PUSH ONE ×2 (20:00→23:30)
[2017-11-27] MEDS ORDERED: HYDROmorphone HCL PF 2 MG/ML VIAL IV PUSH ONE ×2 (20:00→23:30)
[2017-11-27] MEDS ORDERED: IOHEXOL 350 MG/ML 10 ML VIAL (for RAD DIAG) IVCONTRAST ONE (22:07)
[2017-11-27 22:12] LABS: AMORPHOUS SEDIMENT, URINE RARE; BILIRUBIN, URINE NEG (NEG); BLOOD, URINE NEG (NEG); CALCIUM OXALATE CRYSTALS,URINE FEW /hpf; GLUCOSE,URINE 150 mg/dL (NEG); KETONE, URINE 10 mg/dL (NEG); MUCUS URINE MOD /lpf (OCC); NITRITE,URINE NEG (NEG); PH, URINE 6.5 (5.0-8.5); URINE COLOR YELLOW (YELLW/STRAW); URINE LEUKOCYTE ESTERASE NEG (NEG)
--- NOTE | 2017-11-27 22:38 | RADRPT ---
EXAM DATE/TIME: 11/27/2017 21:51 [facility] COMPARISON: No previous studies available for comparison. INDICATIONS : Diffuse abdominal pain with vomiting. IV CONTRAST: 80 cc Omnipaque 350 (iohexol) IV ORAL CONTRAST: Partial prescribed oral contrast ingested. RADIATION DOSE: 6.57 CTDIvol (mGy) MEDICAL HISTORY : Pancreatitis. Osteomyelitis. Gastroparesis.Diabetes. SURGICAL HISTORY : Cholecystectomy. Splenectomy. Pancreatectomy. ENCOUNTER: Initial ACUITY: 4 - 6 days PAIN SCALE: 9/10 LOCATION: Abdomen. TECHNIQUE: Volumetric scanning of the abdomen and pelvis was performed. Using automated exposure control and ad justment of the mA and/or kV according to patient size, radiation dose was kept as low as reasonably achievable to obtain optimal diagnostic quality images. DICOM format image data is available electro nically for review and comparison. FINDINGS: LOWER LUNGS: The visualized lower lungs are clear. LIVER: Homogeneous density without lesion. There is no dilation of the biliary tree. The patient is status post cholecystectomy. There are varices seen in the upper abdomen and mary hepatis region. SPLEEN: The spleen is absent. PANCREAS: Within normal limits. KIDNEYS: There are small non-obstructing renal stones seen bilaterally measuring up to 4 mm. Hydronephrosis or hydroureter is not seen. ADRENAL GLANDS: Within normal limits. VASCULAR: There is no aortic aneurysm. BOWEL/MESENTERY: The stomach, small bowel, and colon demonstrate no acute abnormality. There is no free intraperitone al air or fluid. The appendix appears normal. ABDOMINAL WALL: Within normal limits. RETROPERITONEUM: There is no lymphadenopathy. BLADDER: The urinary bladder is distended. REPRODUCTIVE: Within normal limits. INGUINAL: There is no lymphadenopathy or hernia. MUSCULOSKELETAL: Within normal limits for patient age. CONCLUSION: 1. Bilateral small marginating renal stones. 2. Varices seen in the upper abdomen. 3. The patient is status post splenectomy. Pancho Hankins MD on November 27, 2017 at 22:33 Board Certified Radiologist. This report was verified electronically.
[2017-11-27] MEDS ORDERED: ZOFR4TAB3 SL (23:33)
[2017-11-27] MEDS ORDERED: DIPH12.5S PO (23:33)
[2017-11-27] MEDS ORDERED: LIDO1SOL8 SWISH-SWAL (23:33)
--- NOTE | 2017-11-27 23:34 | PD ---
Physical Exam Narrative Patient signed out to me at shift change history of gastroparesis and brittle diabetes with abdominal pain nausea vomiting. Labs and x-ray pending. Patient' s abdominal films did not show obvious obstruction or free air, however there is a general paucity of air. Laboratory examinations reviewed, patient has markedly elevated white blood cell count at 19.6. Further history notes patient has a chronic left foot infection with possible hospital osteomyelitis, scheduled for MRI tomorrow. Patient has had a PICC line with receiving clindamycin for many weeks which patient states he is had gradual improvement in his foot swelling and pain, however notes that it is again been getting worse over the past 5 days to a week. Patient is scheduled to see his deputy director of nursing tomorrow who is coordinating this care. Data Data Last Documented VS Vital Signs Date Time Temp Pulse Resp B/P (MAP) Pulse Ox O2 Delivery O2 Flow Rate FiO2 11/27/17 19:04 95 12 129/71 (90) 97 Room Air 11/27/17 17:08 98.3 Orders Orders Complete Blood Count With Diff (11/27/17 17:10) Comprehensive Metabolic Panel (11/27/17 17:10) Lipase (11/27/17 17:10) Urinalysis - C+S If Indicated (11/27/17 17:10) Act Partial Throm Time (Ptt) (11/27/17 17:10) Prothrombin Time / Inr (Pt) (11/27/17 17:10) Sodium Chlor 0.9% 1000 Ml Inj (Ns 1000 M (11/27/17 17:30) Metoclopramide Inj (Reglan Inj) (11/27/17 17:30) Morphine Inj (Morphine Inj) (11/27/17 17:30) Abdomen, Upright Only (11/27/17 ) Ct Abd/Pel W Iv Contrast(Rout) (11/27/17 ) Oral Contrast - Adult (11/27/17 19:38) Ondansetron Inj (Zofran Inj) (11/27/17 20:00) Diatrizoate Liq ( Gastroview Liq) (11/27/17 19:52) Hydromorphone Pf Inj (Dilaudid Pf Inj) (11/27/17 20:00) Sodium Chlor 0.9% 1000 Ml Inj (Ns 1000 M (3/27/18 21:30) Iohexol 350 Inj (Omnipaque 350 Inj) (11/27/17 22:07) Hydromorphone Pf Inj (Dilaudid Pf Inj) (11/27/17 23:30) Ondansetron Inj (Zofran Inj) (11/27/17 23:30) Labs Laboratory Tests Test 11/27/17 18:00 11/27/17 22:00 White Blood Count 19.6 TH/MM3 Red Blood Count 3.50 MIL/MM3 Hemoglobin 10.2 GM/DL Hematocrit 31.1 % Mean Corpuscular Volume 88.9 FL Mean Corpuscular Hemoglobin 29.1 PG Mean Corpuscular Hemoglobin Concent 32.7 % Red Cell Distribution Width 14.3 % Platelet Count 505 TH/MM3 Mean Platelet Volume 9.2 FL Neutrophils (%) (Auto) 88.6 % Lymphocytes (%) (Auto) 7.0 % Monocytes (%) (Auto) 3.8 % Eosinophils (%) (Auto) 0.0 % Basophils (%) (Auto) 0.6 % Neutrophils # (Auto) 17.3 TH/MM3 Lymphocytes # (Auto) 1.4 TH/MM3 Monocytes # (Auto) 0.7 TH/MM3 Eosinophils # (Auto) 0.0 TH/MM3 Basophils # (Auto) 0.1 TH/MM3 CBC Comment DIFF FINAL Differential Comment Prothrombin Time 11.0 SEC Prothromb Time International Ratio 1.1 RATIO Activated Partial Thromboplast Time 28.2 SEC Blood Urea Nitrogen 10 MG/DL Creatinine 0.68 MG/DL Random Glucose 160 MG/DL Total Protein 7.9 GM/DL Albumin 2.9 GM/DL Calcium Level 8.8 MG/DL Alkaline Phosphatase 129 U/L Aspartate Amino Transf (AST/SGOT) 19 U/L Alanine Aminotransferase (ALT/SGPT) 6 U/L Total Bilirubin 0.4 MG/DL Sodium Level 136 MEQ/L Potassium Level 4.0 MEQ/L Chloride Level 100 MEQ/L Carbon Dioxide Level 26.3 MEQ/L Anion Gap 10 MEQ/L Estimat Glomerular Filtration Rate 140 ML/MIN Lipase 35 U/L Urine Color YELLOW Urine Turbidity CLEAR Urine pH 6.5 Urine Specific [place] 1.014 Urine Protein NEG mg/dL Urine Glucose (UA) 150 mg/dL Urine Ketones 10 mg/dL Urine Occult Blood NEG Urine Nitrite NEG Urine Bilirubin NEG Urine Urobilinogen LESS THAN 2.0 MG/DL Urine Leukocyte Esterase NEG Urine RBC 22 /hpf Urine WBC 2 /hpf Urine Calcium Oxalate Crystals FEW /hpf Urine Amorphous Sediment RARE Urine Mucus MOD /lpf Microscopic Urinalysis Comment CULT NOT INDICATED MDM Medical Record Reviewed: Yes Supervised Visit with ABIODUN: Yes Differential Diagnosis Gastroparesis, foot infection-chronic, dehydration Narrative Course Patient received IV fluids, pain medications and antiemetics and had gradual resolution of his nausea vomiting and abdominal pain. Patient is able to tolerate p.o. Care plan discussed with patient, patient was offered dose of vancomycin and Zosyn here in ED for probable treatment failure of clindamycin IV which patient has been receiving for the past several weeks. Patient declines stating he was going to follow-up with his deputy director of nursing Dr. Brink. Diagnosis Primary Impression: Gastroparesis Additional Impression: Osteomyelitis Qualified Codes: M86.672 - Other chronic osteomyelitis, left ankle and foot Patient Instructions: Diabetic Gastroparesis (GEN), General Instructions, Osteomyelitis (ED) Additional Instruction: Follow-up with your deputy director of nursing Dr. Brink tomorrow. Recommend strongly follow- up with infectious disease as well as discussed. Drink plenty of fluids, advance diet slowly as tolerated. Follow-up with your inspector purchased parts and mathematician. Return for worsening Scripts Diphenhydramine Liq (Diphenhydramine Liq) 12.5 Mg/5 Ml Elix 12.5 MG PO Q6H Y for ALLERGIES, #1 BOTTLE 0 Refills Prov: Jeffrey Cedeño MD 11/27/17 Lidocaine Viscous Liq (Lidocaine Viscous Liq) 2 % Liqd 5 ML SWISH-SWAL DIRECTED Y for PAIN, #1 BOTTLE 0 Refills Prov: Jeffrey Cedeoñ MD 11/27/17 Ondansetron Odt (Zofran Odt) 4 Mg Tab 4 MG SL Q8HR Y for Nausea/Vomiting, #30 TAB 0 Refills Prov: Jeffrey Cedeño MD 11/27/17 Disposition: 01 DISCHARGE HOME Condition: Stable Jeffrey Cedeño MD Nov 27, 2017 23:34
== END 2017-11-28 00:56 | disposition home or self-care (01) ==
LOC: NEPE 16:43
DX: E11.43 Type 2 diabetes mellitus with diabetic autonomic (poly)neuropathy (principal); K31.84 Gastroparesis; M86.9 Osteomyelitis, unspecified; N20.0 Calculus of kidney; J45.909 Unspecified asthma, uncomplicated; F17.200 Nicotine dependence, unspecified, uncomplicated; Z79.4 Long term (current) use of insulin; Z87.19 Personal history of other diseases of the digestive system; Z79.899 Other long term (current) drug therapy
CPT/HCPCS: 74018; 74177; 80053; 81001; 83690; 85025; 85610; 85730; 96374; 96375; 96376; 99285; J1170; J2270; J2405; J2765; J7030; Q9963; Q9967

== ENCOUNTER 2017-11-28 18:24 | Emergency (ER) | payer OTHER ==
[~2017-11-28] VITALS: Ht 188 cm; Wt 70.0 kg
[~2017-11-28 18:24] MED LIST changes: +DIPH12.5S PO; +ZOFR4TAB3 SL
[2017-11-28 18:33] VITALS: BP 138/82; PULSE 112; RESP 20; TEMP 99.3; O2SAT 96
[2017-11-28 20:13] LABS: AUTOMATED NEUTROPHIL # 13.5 TH/MM3 (1.8-7.7); BASOPHIL # 0.3 TH/MM3 (0-0.2); EOSINOPHIL # 0.1 TH/MM3 (0-0.4); EOSINOPHIL % 0.6 % (0.0-4.0); HEMATOCRIT 30.6 % (39.0-51.0); HEMOGLOBIN 10.4 GM/DL (13.0-17.0); LYMPH % 7.1 % (9.0-44.0); LYMPHOCYTE # 1.2 TH/MM3 (1.0-4.8); MEAN CORPUSCULAR HEMOGLOBIN 30.1 PG (27.0-34.0); MEAN CORPUSCULAR HGB CONC 33.8 % (32.0-36.0); MEAN PLATELET VOLUME 9.3 FL (7.0-11.0); MONO % 7.6 % (0.0-8.0); MONOCYTE # 1.2 TH/MM3 (0-0.9); NEUT % 82.7 % (16.0-70.0); PLATELET COUNT 540 TH/MM3 (150-450); RED BLOOD COUNT 3.44 MIL/MM3 (4.50-5.90); RED CELL DISTRIBUTION WIDTH 14.8 % (11.6-17.2); WHITE BLOOD COUNT 16.3 TH/MM3 (4.0-11.0)
[2017-11-28 20:41] LABS: ALBUMIN 2.7 GM/DL (3.4-5.0); ALT (GPT) 7 U/L (12-78); AST (GOT) 13 U/L (15-37); BICARBONATE 29.6 MEQ/L (21.0-32.0); BLOOD UREA NITROGEN 8 MG/DL (7-18); CALCIUM 8.9 MG/DL (8.5-10.1); CHLORIDE 101 MEQ/L (98-107); CREATININE 0.68 MG/DL (0.60-1.30); GLOMERULAR FILTRATION RATE 140 ML/MIN (>89); GLUCOSE,RANDOM 191 MG/DL (74-106); SODIUM (NA) 138 MEQ/L (136-145)
[2017-11-28 20:43] LABS: ALKALINE PHOSPHATASE 130 U/L (45-117); TOTAL BILIRUBIN ADULT 0.4 MG/DL (0.2-1.0); TOTAL PROTEIN 7.8 GM/DL (6.4-8.2)
[2017-11-28] MEDS ORDERED: SODIUM CHLOR 0.9% 1000 ML INJ 1,000 ML IV SCH (21:04)
[2017-11-28] MEDS ORDERED: SODIUM CHLORIDE 0.9% FLUSH 10 ML FLUSH IVF PRN (21:15)
[2017-11-28] MEDS ORDERED: SODIUM CHLOR 0.9% 250 ML INJ 250 ML IV ONE (21:15)
[2017-11-28] MEDS ORDERED: ONDANSETRON HCL 4 MG/2 ML VIAL IVP ONE (21:15)
[2017-11-28 21:24] LABS: BANDS 1 % (0-6); LYMPHOCYTES 10 % (9-44); MONOCYTES 11 % (0-8); NEUTROPHIL # MANUAL DIFF 12.9 TH/MM3 (1.8-7.7); POLYS (SEG NEUTROPHILS) 78 % (16-70)
[2017-11-28 21:26] LABS: ACANTHOCYTES OCC (NORMAL)
[2017-11-28] MEDS ORDERED: DICYCLOMINE HCL 20 MG/2 ML VIAL IM ONE (21:45)
[2017-11-28] MEDS ORDERED: diphenhydrAMINE HCL 50 MG/ML VIAL IV PUSH ONE (21:45)
[2017-11-28] MEDS ORDERED: MORPHINE SULFATE 8 MG/ML INJ IV PUSH ONE (21:45)
[2017-11-28] MEDS ORDERED: PROCHLORPERAZINE INJ 10 MG/2 ML VIAL IV PUSH ONE (21:45)
[2017-11-28] MEDS ORDERED: MORPHINE SULFATE 4 MG/ML INJ IV PUSH ONE (22:45)
[2017-11-28] MEDS ORDERED: LIDOCAINE VISCOUS 2% SOLN 15 ML UDC PO ONE (22:45)
[2017-11-28] MEDS ORDERED: PROMETHAZINE INJ 25 MG/ML VIAL IM ONE (22:45)
[2017-11-28 23:27] VITALS: BP 128/81; PULSE 95; RESP 13; TEMP 98.3; O2SAT 97
--- NOTE | 2017-11-28 23:59 | PD ---
HPI Chief Complaint: GI Complaint Time Seen by Provider: 21:04 Travel History International Travel<30 days: No Contact w/Intl Traveler<30days: No Traveled to known affect area: No History of Present Illness HPI Patient's 48 years old and complains of nausea with abdominal pain for about 5 days. He has a history of gastroparesis. Reglan and Zofran at home were not very helpful. He reports diarrhea every day however no change in severity or frequency lately. He has seen no blood in his stool or emesis. He reports vomiting about 10 times a day. Patient states the pain is severe. PFSH Past Medical History Asthma: Yes ( A CHILD) Autoimmune Disease: No Anxiety: No Depression: No Cardiovascular Problems: No Diabetes: Yes Patient Takes Glucophage: No Diminished Hearing: No Gastrointestinal Disorders: Yes (GASTROPARESIS) Genitourinary: No Medical other: Yes ("OSEOMYLITIS, BILATERAL TOE AMPUTATIONS") Musculoskeletal: Yes Neurologic: No Psychiatric: No Reproductive: No Respiratory: Yes (chest tube) Pancreatitis: Yes Past Surgical History Abdominal Surgery: Yes (CHOLY, SPLENECTOMY, 70% PANCREAS REMOVED AT [facility]) Cholecystectomy: Yes Social History Alcohol Use: No Tobacco Use: Yes (ONE PPD) Substance Use: No Allergies-Medications (Allergen,Severity, Reaction): Coded Allergies: calcium carbonate (Verified Allergy, Intermediate, HIVES, 11/28/17) cephalexin (Verified Allergy, Intermediate, HIVES, 11/28/17) magnesium hydroxide (Verified Allergy, Unknown, Hives, 11/28/17) magnesium hydroxide (Verified Allergy, Unknown, Hives, 11/28/17) Reported Meds & Prescriptions Reported Meds & Active Scripts Active Diphenhydramine Liq (Diphenhydramine HCl) 12.5 Mg/5 Ml Elix 12.5 Mg PO Q6H PRN Lidocaine Viscous Liq 2 % Liqd 5 Ml SWISH-SWAL DIRECTED PRN Zofran Odt (Ondansetron Odt) 4 Mg Tab 4 Mg SL Q8HR PRN [place] (Hydrocodone-Acetaminophen) 7.5-325 mg Tab 1 Tab PO Q4H PRN Lidocaine Viscous Liq 2 % Liqd 10 Ml SWISH-SWAL QID PRN Protonix (Pantoprazole Sodium) 40 Mg Tab 40 Mg PO DAILY Reported Ativan (Lorazepam) 1 Mg Tab 1 Mg PO Q8H PRN Ondansetron HCl 4 mg/2 ml Amp (Ondansetron HCl/Pf) 4 Mg/2 Ml Ampul 8 Mg IM Q4HR PRN Phenergan Inj (Promethazine HCl) 25 Mg/Ml Inj 25 Mg IM Q6H PRN Phenergan (Promethazine HCl) 25 Mg Tablet 25 Mg PO Q6H PRN Reglan (Metoclopramide HCl) 10 Mg Tab 10 Mg PO QID Zofran (Ondansetron HCl) 4 Mg Tab 4 Mg PO Q12HR PRN Tresiba Flextouch Pen Inj (Insulin Degludec Inj) Unknown Strength Pen 22 Units SQ DAILY Novolog Inj (Insulin Aspart) 1,000 Unit/10 Ml Vial 0 SQ DIRECTED Sliding Scale as directed. Review of Systems Except as stated in HPI: all other systems reviewed are Neg General / Constitutional: No: Fever Physical Exam Narrative GENERAL: 27-year-old male mild distress due to pain and/or anxiety Vital Signs Date Time Temp Pulse Resp B/P (MAP) Pulse Ox O2 Delivery O2 Flow Rate FiO2 11/28/17 23:27 98.3 95 13 128/81 (97) 97 Room Air 11/28/17 21:05 20 11/28/17 18:33 99.3 112 20 138/82 (100) 96 SKIN: Warm and dry. HEAD: Atraumatic. Normocephalic. EYES: Pupils equal and round. No scleral icterus. No injection or drainage. ENT: No nasal bleeding or discharge. Mucous membranes pink and moist. NECK: Trachea midline. No JVD. CARDIOVASCULAR: Regular rate and rhythm. RESPIRATORY: No accessory muscle use. Clear to auscultation. Breath sounds equal bilaterally. GASTROINTESTINAL: Soft. No focus of tenderness. MUSCULOSKELETAL: Extremities without clubbing, cyanosis, or edema. No obvious deformities. NEUROLOGICAL: Awake and alert. No obvious cranial nerve deficits. Motor grossly within normal limits. Five out of 5 muscle strength in the arms and legs. Normal speech. PSYCHIATRIC: Appropriate mood and affect; insight and judgment normal. Data Data Last Documented VS Vital Signs Date Time Temp Pulse Resp B/P (MAP) Pulse Ox O2 Delivery O2 Flow Rate FiO2 11/28/17 23:27 98.3 95 13 128/81 (97) 97 Room Air Orders Orders Complete Blood Count With Diff (11/28/17 18:37) Comprehensive Metabolic Panel (11/28/17 18:37) Lipase (11/28/17 18:37) Blood Product Administration (11/28/17 21:04) Ecg Monitoring (11/28/17 21:04) Iv Access Insert/Monitor (11/28/17 21:04) Oximetry (11/28/17 21:04) Ondansetron Inj (Zofran Inj) (11/28/17 21:15) Sodium Chlor 0.9% 1000 Ml Inj (Ns 1000 M (11/28/17 21:04) Sodium Chloride 0.9% Flush (Ns Flush) (11/28/17 21:15) Sodium Chlor 0.9% 250 Ml Inj (Ns 250 Ml (11/28/17 21:15) Prochlorperazine Inj (Compazine Inj) (11/28/17 21:45) Diphenhydramine Inj (Benadryl Inj) (11/28/17 21:45) Morphine Inj (Morphine Inj) (11/28/17 21:45) Dicyclomine Inj (Bentyl Inj) (11/28/17 21:45) Promethazine Inj (Phenergan Inj) (11/28/17 22:45) Morphine Inj (Morphine Inj) (11/28/17 22:45) Lidocaine 2% Viscous (Xylocaine 2% Visco (11/28/17 22:45) Labs Laboratory Tests Test 11/28/17 19:25 White Blood Count 16.3 TH/MM3 Red Blood Count 3.44 MIL/MM3 Hemoglobin 10.4 GM/DL Hematocrit 30.6 % Mean Corpuscular Volume 89.0 FL Mean Corpuscular Hemoglobin 30.1 PG Mean Corpuscular Hemoglobin Concent 33.8 % Red Cell Distribution Width 14.8 % Platelet Count 540 TH/MM3 Mean Platelet Volume 9.3 FL Neutrophils (%) (Auto) 82.7 % Lymphocytes (%) (Auto) 7.1 % Monocytes (%) (Auto) 7.6 % Eosinophils (%) (Auto) 0.6 % Basophils (%) (Auto) 2.0 % Neutrophils # (Auto) 13.5 TH/MM3 Lymphocytes # (Auto) 1.2 TH/MM3 Monocytes # (Auto) 1.2 TH/MM3 Eosinophils # (Auto) 0.1 TH/MM3 Basophils # (Auto) 0.3 TH/MM3 CBC Comment AUTO DIFF Differential Total Cells Counted 100 Neutrophils % (Manual) 78 % Band Neutrophils % 1 % Lymphocytes % 10 % Monocytes % 11 % Neutrophils # (Manual) 12.9 TH/MM3 Differential Comment FINAL DIFF MANUAL Platelet Estimate HIGH Platelet Morphology Comment NORMAL Acanthocytes OCC Blood Urea Nitrogen 8 MG/DL Creatinine 0.68 MG/DL Random Glucose 191 MG/DL Total Protein 7.8 GM/DL Albumin 2.7 GM/DL Calcium Level 8.9 MG/DL Alkaline Phosphatase 130 U/L Aspartate Amino Transf (AST/SGOT) 13 U/L Alanine Aminotransferase (ALT/SGPT) 7 U/L Total Bilirubin 0.4 MG/DL Sodium Level 138 MEQ/L Potassium Level 3.5 MEQ/L Chloride Level 101 MEQ/L Carbon Dioxide Level 29.6 MEQ/L Anion Gap 7 MEQ/L Estimat Glomerular Filtration Rate 140 ML/MIN Lipase 37 U/L MDM Medical Decision Making Medical Screen Exam Complete: Yes Emergency Medical Condition: Yes Medical Record Reviewed: Yes Differential Diagnosis Constipation, Gastritis, Acute Cholecystitis, Biliary Colic, Pancreatitis, [place] , Hepatitis, Bowel Obstruction, Cystitis, Mesenteric Ischemia, AAA, Appendicitis , Renal Stone/Hydronephrosis, GERD, perforated viscous Narrative Course CBC & BMP Diagram 11/28/17 19:25 Total Protein 7.8, Albumin 2.7 L, Calcium Level 8.9, Alkaline Phosphatase 130 H , Aspartate Amino Transf (AST/SGOT) 13 L, Alanine Aminotransferase (ALT/SGPT) 7 L, Total Bilirubin 0.4 Lipase is 37 patient received Compazine and Benadryl. He also received viscous lidocaine. 2 doses of morphine are given. Sufficient pain control was achieved. The patient's ready for discharge. Diagnosis Primary Impression: Gastroparesis Referrals: Primary Care Physician Med/Other Pt SpecificInfo: Prescription(s) given Disposition: 01 DISCHARGE HOME Condition: Stable Tesfaye Tamayo MD Nov 28, 2017 23:59
[2017-11-29] MEDS ORDERED: KETOROLAC TROMETHAMINE 30 MG/ML (IVP) VIAL IV PUSH ONE (00:15)
[2017-11-29] MEDS ORDERED: ONDANSETRON HCL 4 MG/2 ML VIAL IV PUSH ONE (01:00)
== END 2017-11-29 01:00 | disposition home or self-care (01) ==
LOC: NEPD 18:24
DX: E11.43 Type 2 diabetes mellitus with diabetic autonomic (poly)neuropathy (principal); K31.84 Gastroparesis; F17.200 Nicotine dependence, unspecified, uncomplicated; Z79.4 Long term (current) use of insulin
CPT/HCPCS: 80053; 83690; 85007; 85027; 96361; 96372; 96374; 96375; 99284; J0500; J0780; J1200; J1885; J2270; J2405; J2550; J7030

== ENCOUNTER 2017-12-05 03:59 | Emergency (ER) | payer OTHER ==
[~2017-12-05] VITALS: Ht 182.9 cm; Wt 65.0 kg
[~2017-12-05 03:59] MED LIST changes: -CLIN300C5 PO; -LEVA750T9 PO
[2017-12-05 04:02] VITALS: BP 96/51; PULSE 114; RESP 16; TEMP 98.1; O2SAT 99
[2017-12-05 04:32] LABS: AUTOMATED NEUTROPHIL # 12.7 TH/MM3 (1.8-7.7); BASOPHIL # 0.2 TH/MM3 (0-0.2); BASOPHIL % 1.1 % (0.0-2.0); EOSINOPHIL # 0.1 TH/MM3 (0-0.4); EOSINOPHIL % 0.8 % (0.0-4.0); HEMATOCRIT 34.4 % (39.0-51.0); HEMOGLOBIN 11.2 GM/DL (13.0-17.0); LYMPH % 9.9 % (9.0-44.0); LYMPHOCYTE # 1.5 TH/MM3 (1.0-4.8); MEAN CELL VOLUME 88.4 FL (80.0-100.0); MEAN CORPUSCULAR HEMOGLOBIN 28.8 PG (27.0-34.0); MEAN CORPUSCULAR HGB CONC 32.6 % (32.0-36.0); MEAN PLATELET VOLUME 8.8 FL (7.0-11.0); MONO % 4.5 % (0.0-8.0); MONOCYTE # 0.7 TH/MM3 (0-0.9); NEUT % 83.7 % (16.0-70.0); PLATELET COUNT 649 TH/MM3 (150-450); RED BLOOD COUNT 3.89 MIL/MM3 (4.50-5.90); RED CELL DISTRIBUTION WIDTH 14.7 % (11.6-17.2); WHITE BLOOD COUNT 15.2 TH/MM3 (4.0-11.0)
--- NOTE | 2017-12-05 04:38 | PD ---
HPI Chief Complaint: Abdominal Pain Time Seen by Provider: 04:16 Travel History International Travel<30 days: No Contact w/Intl Traveler<30days: No Traveled to known affect area: No History of Present Illness HPI The patient is a 27 year old male who presents to the [facility] emergency department with a history of chronic abdominal pain that worsened again a week ago. He has a history of chronic abdominal pain and gastroparesis and usually on average vomits 4 times per day. The patient is also a type I diabetic. He currently has a PICC line in place due to a recent osteomyelitis of the left fourth toe. He recently completed his course of clindamycin. He is on oral Reglan, zofran iv, and phenergan IM. He reports that today he has vomited at least 10 times since the onset of the worsening symptoms. He reports that the pain in his abdomen is across the upper abdomen and in the midepigastric area. He has chronic diarrhea that is exacerbated by eating. He usually moves his bowels 2 x per day.The patient denies any history of fever, cough, congestion, neck pain, chest pain, shortness of breath, urinary symptoms, or neurologic symptoms. The patient reports that he has an appointment scheduled with his wood calker, Dr. Monroe scheduled for today. 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 Asthma: Yes ( A CHILD) Autoimmune Disease: No Anxiety: No Depression: No Cardiovascular Problems: No Diabetes: Yes Patient Takes Glucophage: No Diminished Hearing: No Gastrointestinal Disorders: Yes (GASTROPARESIS) Genitourinary: No Musculoskeletal: Yes Neurologic: No Psychiatric: No Reproductive: No Respiratory: Yes (chest tube) Pancreatitis: Yes Tetanus Vaccination: Unknown Influenza Vaccination: No Past Surgical History Narrative Surgical Patient's past surgical history is significant for splenectomy, cholecystectomy , pseudocyst resection, fifth toe resection off of bilateral feet. Abdominal Surgery: Yes (CHOLY, SPLENECTOMY, 70% PANCREAS REMOVED AT [facility]) Cholecystectomy: Yes Other Surgery: Yes (PICC line to left upper arm placement) Social History Alcohol Use: No Tobacco Use: Yes (ONE PPD) Substance Use: No Allergies-Medications (Allergen,Severity, Reaction): Coded Allergies: calcium carbonate (Verified Allergy, Intermediate, HIVES, 12/05/17) cephalexin (Verified Allergy, Intermediate, HIVES, 12/05/17) magnesium hydroxide (Verified Allergy, Unknown, Hives, 12/05/17) magnesium hydroxide (Verified Allergy, Unknown, Hives, 12/05/17) Reported Meds & Prescriptions Reported Meds & Active Scripts Active Diphenhydramine Liq (Diphenhydramine HCl) 12.5 Mg/5 Ml Elix 12.5 Mg PO Q6H PRN Zofran Odt (Ondansetron Odt) 4 Mg Tab 4 Mg SL Q8HR PRN [place] (Hydrocodone-Acetaminophen) 7.5-325 mg Tab 1 Tab PO Q4H PRN Lidocaine Viscous Liq 2 % Liqd 10 Ml SWISH-SWAL QID PRN Protonix (Pantoprazole Sodium) 40 Mg Tab 40 Mg PO DAILY Reported Ativan (Lorazepam) 1 Mg Tab 1 Mg PO Q8H PRN Phenergan Inj (Promethazine HCl) 25 Mg/Ml Inj 25 Mg IM Q6H PRN Phenergan (Promethazine HCl) 25 Mg Tablet 25 Mg PO Q6H PRN Reglan (Metoclopramide HCl) 10 Mg Tab 10 Mg PO QID Zofran (Ondansetron HCl) 4 Mg Tab 4 Mg PO Q12HR PRN Tresiba Flextouch Pen Inj (Insulin Degludec Inj) Unknown Strength Pen 22 Units SQ DAILY Novolog Inj (Insulin Aspart) 1,000 Unit/10 Ml Vial 0 SQ DIRECTED Sliding Scale as directed. Review of Systems Except as stated in HPI: all other systems reviewed are Neg General / Constitutional: No: Fever Eyes: No: Visual changes HENT: No: Headaches Cardiovascular: No: Chest Pain or Discomfort Respiratory: No: Shortness of Breath Gastrointestinal: Positive: Nausea, Vomiting, Diarrhea, Abdominal Pain, Indigestion, No: Changes in Bowel Habits, Loss of Appetite Genitourinary: No: Dysuria Musculoskeletal: No: Pain Skin: No Rash Neurologic: Positive: Weakness (Generalized weakness), No: Focal Abnormalities , Change in Mentation, Slurred Speech, Sensory Disturbance Psychiatric: No: Depression Endocrine: No: Polydipsia Hematologic/Lymphatic: No: Easy Bruising Physical Exam Narrative General: The patient is a well-developed thin appearing male, uncomfortable appearing on initial arrival, intermittently vomiting/dry heaving Head and Neck exam: Head is normocephalic atraumatic. Eyes: EOMI, pupils are equal round and reactive to light. Nose: Midline septum with pink mucous membranes Mouth: Dentition unremarkable. Moist mucus membranes. Posterior oropharynx is not erythematous. No tonsillar hypertrophy. Uvula midline. Airway patent. Neck: No palpable lymphadenopathy. No nuchal rigidity. No thyromegaly. Cardiovascular: Sinus tachycardia in the low 100 without murmurs, gallops, or rubs. No pulse deficit to the extremities on simultaneous auscultation and palpation of his radial artery. Lungs: Clear to auscultation bilaterally. No wheezes, rhonchi, or rales. Abdomen: Soft, with reported discomfort on palpation of the midepigastric area and bilateral upper quadrants of the abdomen, no other tenderness on palpation of the other quadrants. No guarding, rebound, or rigidity. Normal bowel sounds are audible. No tenderness on palpation of McBurney's point. Extremities: No clubbing, cyanosis, or edema. 2+ pulses in all 4 extremities. Back: No spinous process tenderness to palpation. No costovertebral angle tenderness to palpation. Neurologic Exam: Cranial nerves 2-12 were intact on exam. Strength is 5/5 in all 4 extremities. No sensory deficits noted. No dysdiadochokinesis. Good finger to nose and Heel to belle bilaterally. Skin Exam: No rash noted. Intact skin that is warm and dry. Data Data Last Documented VS Vital Signs Date Time Temp Pulse Resp B/P (MAP) Pulse Ox O2 Delivery O2 Flow Rate FiO2 12/05/17 06:09 16 12/05/17 06:08 86 132/59 (83) 99 Room Air 12/05/17 04:02 98.1 Orders Orders Complete Blood Count With Diff (12/05/17 04:21) Comprehensive Metabolic Panel (12/05/17 04:21) Urinalysis - C+S If Indicated (12/05/17 04:21) Iv Access Insert/Monitor (12/05/17 04:21) Oxygen Administration (12/05/17 04:21) Oximetry (12/05/17 04:21) Lipase (12/05/17 04:21) Sodium Chlor 0.9% 1000 Ml Inj (Ns 1000 M (12/05/17 04:45) Metoclopramide Inj (Reglan Inj) (12/05/17 04:45) Morphine Inj (Morphine Inj) (12/05/17 04:45) Prochlorperazine Inj (Compazine Inj) (12/05/17 05:15) Lorazepam Inj (Ativan Inj) (12/05/17 05:15) Sodium Chlor 0.9% 1000 Ml Inj (Ns 1000 M (12/05/17 06:00) Insulin Human Regular Inj (Novolin R Inj (12/05/17 06:30) Potassium Chlor 10 Meq Premix (Kcl 10 Me (12/05/17 06:30) Labs Laboratory Tests Test 12/05/17 04:25 12/05/17 06:10 White Blood Count 15.2 TH/MM3 Red Blood Count 3.89 MIL/MM3 Hemoglobin 11.2 GM/DL Hematocrit 34.4 % Mean Corpuscular Volume 88.4 FL Mean Corpuscular Hemoglobin 28.8 PG Mean Corpuscular Hemoglobin Concent 32.6 % Red Cell Distribution Width 14.7 % Platelet Count 649 TH/MM3 Mean Platelet Volume 8.8 FL Neutrophils (%) (Auto) 83.7 % Lymphocytes (%) (Auto) 9.9 % Monocytes (%) (Auto) 4.5 % Eosinophils (%) (Auto) 0.8 % Basophils (%) (Auto) 1.1 % Neutrophils # (Auto) 12.7 TH/MM3 Lymphocytes # (Auto) 1.5 TH/MM3 Monocytes # (Auto) 0.7 TH/MM3 Eosinophils # (Auto) 0.1 TH/MM3 Basophils # (Auto) 0.2 TH/MM3 CBC Comment DIFF FINAL Differential Comment Blood Urea Nitrogen 12 MG/DL Creatinine 1.00 MG/DL Random Glucose 271 MG/DL Total Protein 8.2 GM/DL Albumin 3.1 GM/DL Calcium Level 8.8 MG/DL Alkaline Phosphatase 146 U/L Aspartate Amino Transf (AST/SGOT) 14 U/L Alanine Aminotransferase (ALT/SGPT) 7 U/L Total Bilirubin 0.3 MG/DL Sodium Level 139 MEQ/L Potassium Level 3.3 MEQ/L Chloride Level 101 MEQ/L Carbon Dioxide Level 30.4 MEQ/L Anion Gap 8 MEQ/L Estimat Glomerular Filtration Rate 90 ML/MIN Lipase 43 U/L Urine Color YELLOW Urine Turbidity CLEAR Urine pH 7.0 Urine Specific [place] 1.020 Urine Protein TRACE mg/dL Urine Glucose (UA) 1000 mg/dL Urine Ketones NEG mg/dL Urine Occult Blood NEG Urine Nitrite NEG Urine Bilirubin NEG Urine Urobilinogen LESS THAN 2.0 MG/DL Urine Leukocyte Esterase NEG Urine RBC 4 /hpf Urine WBC 1 /hpf Urine Hyaline Casts 5 /lpf Urine Mucus FEW /lpf Microscopic Urinalysis Comment CULT NOT INDICATED MDM Medical Decision Making Medical Screen Exam Complete: Yes Emergency Medical Condition: Yes Medical Record Reviewed: Yes Differential Diagnosis Gastroparesis exacerbation, versus cyclic vomiting syndrome, versus dehydration , versus electrolyte derangement Narrative Course During the course of the patient's emergency department visit, the patient's history, examination, and differential diagnosis were reviewed with the patient. The patient was placed on a hall monitor with oximetry and frequent blood pressure monitoring. The patient had IV access obtained and blood work sent for analysis. The patient was initially provided morphine 4 mg IV for pain, Reglan 5 mg IV for nausea, normal saline 1 L IV fluid bolus. The patient continued to have nausea and was given Ativan 0.5 mg IV, Compazine 5 mg IV, a second liter of normal saline IV fluids The patient's laboratory studies were reviewed and remarkable for a white count of 15.2, hemoglobin 11.2, platelets 649 with 83.7 neutrophils, CMP is remarkable for potassium of 3.3 which the patient was given a supplemental rider of IV for potassium to replace. Glucose 271, patient was given Regular Insulin 2 units subcutaneously. AST 14, ALT 7, alk phos 146, lipase 43. The patient's abdominal examination is benign therefore additional imaging is not recommended. The patient reports having a follow-up appointment with his GI doctor later this morning at 8 AM. The patient will be discharged to follow- up with his wood calker. The patient is resting comfortably and feels better, is alert and in no distress. The patient's results and examination findings were discussed with the patient. The repeat examination is unremarkable and benign. The history, exam, diagnostic testing, and current condition do not suggest any significant pathology to warrant further testing, continued ED treatment, admission, or surgical evaluation at this point. The vital signs have been stable. The patient does not have uncontrollable pain, intractable vomiting, or other significant symptoms. The patient's condition is stable and appropriate for discharge. The patient will pursue further outpatient evaluation with a primary care physician or other designated or consulting physician as indicated in the discharge instructions. The patient expressed understanding and was agreeable with this plan. Diagnosis Primary Impression: Gastroparesis Additional Impression: Vomiting Qualified Codes: R11.2 - Nausea with vomiting, unspecified Referrals: Ilsa Monroe MD Follow-up with Dr. Monroe for your appointment previously scheduled later today Patient Instructions: Gastroparesis (ED), General Instructions Med/Other Pt SpecificInfo: No Change to Meds Disposition: 01 DISCHARGE HOME Condition: Stable Daria Lloyd MD Dec 05, 2017 04:38
[2017-12-05] MEDS ORDERED: MORPHINE SULFATE 4 MG/ML INJ IV PUSH ONE (04:45)
[2017-12-05] MEDS ORDERED: SODIUM CHLOR 0.9% 1000 ML INJ 1,000 ML IV ONE ×2 (04:45→06:00)
[2017-12-05] MEDS ORDERED: METOCLOPRAMIDE HCL 10 MG/2 ML VIAL IV PUSH ONE (04:45)
[2017-12-05 04:58] LABS: ALBUMIN 3.1 GM/DL (3.4-5.0); ALT (GPT) 7 U/L (12-78); AST (GOT) 14 U/L (15-37); BICARBONATE 30.4 MEQ/L (21.0-32.0); BLOOD UREA NITROGEN 12 MG/DL (7-18); CALCIUM 8.8 MG/DL (8.5-10.1); CHLORIDE 101 MEQ/L (98-107); GLOMERULAR FILTRATION RATE 90 ML/MIN (>89); GLUCOSE,RANDOM 271 MG/DL (74-106); SODIUM (NA) 139 MEQ/L (136-145)
[2017-12-05 05:01] LABS: ALKALINE PHOSPHATASE 146 U/L (45-117); TOTAL BILIRUBIN ADULT 0.3 MG/DL (0.2-1.0); TOTAL PROTEIN 8.2 GM/DL (6.4-8.2)
[2017-12-05] MEDS ORDERED: PROCHLORPERAZINE INJ 10 MG/2 ML VIAL IV PUSH ONE (05:15)
[2017-12-05] MEDS ORDERED: LORazepam 2 MG/ML VIAL IV PUSH ONE (05:15)
[2017-12-05 05:23] VITALS: BP 143/86; PULSE 90; RESP 20; O2SAT 99
[2017-12-05 06:08] VITALS: BP 132/59; PULSE 86; RESP 16; O2SAT 99
[2017-12-05 06:09] VITALS: RESP 16
[2017-12-05 06:21] LABS: BILIRUBIN, URINE NEG (NEG); BLOOD, URINE NEG (NEG); GLUCOSE,URINE 1000 mg/dL (NEG); HYALINE CAST, URINE 5 /lpf (RARE); KETONE, URINE NEG (NEG); MUCUS URINE FEW /lpf (OCC); NITRITE,URINE NEG (NEG); URINE COLOR YELLOW (YELLW/STRAW); URINE LEUKOCYTE ESTERASE NEG (NEG)
[2017-12-05] MEDS: INSULIN HUMAN REGULAR 1,000 UNITS/10 ML VIAL SQ ONE ×2 (06:29→06:32)
[2017-12-05] MEDS ORDERED: POTASSIUM CHLOR 10 MEQ PREMIX 100 ML IV ONE (06:30)
== END 2017-12-05 07:39 | disposition home or self-care (01) ==
LOC: NEPC 03:59
DX: E10.43 Type 1 diabetes mellitus with diabetic autonomic (poly)neuropathy (principal); K31.84 Gastroparesis; F17.200 Nicotine dependence, unspecified, uncomplicated; Z79.4 Long term (current) use of insulin
CPT/HCPCS: 80053; 81001; 83690; 85025; 96361; 96372; 96374; 96375; 99284; J0780; J1815; J2060; J2270; J2765; J3480; J7030